=== PATIENT | female | born 1945 | race Caucasian/White ===

== ENCOUNTER 2021-12-11 09:47 | Day surgery (SDC) | payer MEDICARE, BC, SELFPAY ==
[2021-12-11] VITALS (26 sets, daily range): BP systolic 105–160; BP diastolic 50–121; PULSE 1–88; RESP 12–20; TEMP 35.6–36.6; O2SAT 92–98; BMI 33.0
[2021-12-11] MEDS: ACETAMINOPHEN 500 MG TABLET 1000 MG PO ×3 (10:20→21:00)
[2021-12-11] MEDS: CELECOXIB 200 MG CAPSULE PO ×2 (10:20→20:59)
[2021-12-11] MEDS: OXYCODONE (CR) 10 MG TAB.ER.12H PO (10:20)
[2021-12-11] MEDS: LACTATED RINGERS 1000 ML 1,000 ML 100 ML IV (10:21)
[2021-12-11] MEDS: SODIUM CHLORIDE 0.9 % (FLUSH) 10 ML SYRINGE IVF (10:23)
[2021-12-11] MEDS: fentaNYL 100 MCG/2 ML inj IVP (10:41)
[2021-12-11] MEDS: MIDAZOLAM HCL 1 MG/ML inj IVP (10:41)
--- NOTE | 2021-12-11 10:44 | SUR.PREOP ---
TIME?OUT:?1040 PT/brigitte huang RN/Dr. Thomas MDA?VERIFICATION?OF?SURGICAL?SITE right knee,?PROCEDURE,?AND?CONSENT OBTAINED?PRIOR?TO?INVASIVE?PROCEDURE.
[2021-12-11] MEDS: CEFAZOLIN 2 GM INJ IVP (11:30)
--- NOTE | 2021-12-11 12:10 | P.NB_ITS ---
Nerve Block Nerve Block Type of block requested by surgeon for post-operative analgesia: adductor canal Side: right Time out performed: Yes Verification of patient name: Yes Verification of date of : Yes Site marking: site marked Name of person performing procedure: Thomas Assistants, if any: Meghna Continuous monitoring Was continuous monitoring of O2 sat, B/P, cardiac rehabilitation specialist, recorded every 15 minutes?: Yes Procedure Checklist: sterile prep, needles and gloves Ultrasound guided. Images saved: Yes Medications given in 5ml increments after negative aspiration: Ropivicaine %: 0.5 mL: 20 Needle gauge: 22 Decadron (mg): 10 Precedex (mcg): 25 Patient tolerated procedure well: Yes Additional comments: Needle noted adjacent to nerve
--- NOTE | 2021-12-11 12:10 | P.NB_ITS ---
Nerve Block Nerve Block Type of block requested by surgeon for post-operative analgesia: geniculars Side: right Time out performed: Yes Verification of patient name: Yes Verification of date of : Yes Site marking: site marked Name of person performing procedure: Thomas Continuous monitoring Was continuous monitoring of O2 sat, B/P, supervisor type photography, recorded every 15 minutes?: Yes Procedure Checklist: sterile prep, needles and gloves Medications given in 5ml increments after negative aspiration: Ropivicaine %: 0.5 mL: 9 Needle gauge: 25 Patient tolerated procedure well: Yes
--- NOTE | 2021-12-11 13:16 | W.ANESCHARGE ---
Anesthesia Charges Start Date/Time Anesthesia Start Date: 12/11/21 Anesthesia Start Time: 11:14 Stop Date/Time Anesthesia Stop Date: 12/11/21 Anesthesia Stop Time: 13:16 Summary Emergency: No Extremes of Age: Over 72-CPT 30401
--- NOTE | 2021-12-11 13:47 | CRLHL7_ITS ---
For Patients: As a result of the Cures Act, medical imaging exams and procedure reports are released immediately into your electronic medical record. You may view this report before your referring provider. If you have questions, please contact your health care provider. Indication: POST OP RIGHT TKA Technique: Two views right knee Findings/Impression: Hardware from a right total knee arthroplasty is in satisfactory position. Bone alignment is normal. No sign of acute fracture. Postop changes are within normal limits. Dictated by Truman Btuts MD @ 12/12/2021 8:42:25 AM (Electronically Signed)
[2021-12-11] MEDS: LACTATED RINGERS 1000 ML 1,000 ML 75 ML IV (14:20)
--- NOTE | 2021-12-11 14:28 | W.ANESCHARGE ---
Anesthesia Charges Start Date/Time Anesthesia Start Date: 12/11/21 Anesthesia Start Time: 11:14 Stop Date/Time Anesthesia Stop Date: 12/11/21 Anesthesia Stop Time: 13:16 Summary Emergency: No Extremes of Age: Over 72-CPT 85652
--- NOTE | 2021-12-11 15:31 | PM.IMCN1 ---
Date of Consult Consult date: 12/11/21 Requesting Physician: Orthopedics Primary Care Provider: Asha Romo MD Consult Narrative Reason for consult: Medical management of comorbidities Narrative: Sabrina Beard is a 76 year old female who presented to the hospital today for a right TKA. There were no surgical or anesthetic complications noted. Postoperatively, she did have mild hypoxia (oxygen saturation 86-88%), and is tolerating low-dose supplemental oxygen per nasal cannula well. Hospitalist team has been consulted given patient's comorbidities of RLS, essential tremor, GERD, depression, hyperlipidemia, and essential hypertension. PCP is Dr. Romo locally, and no concerns were noted during her preoperative H&P. Sabrina has had previous orthopedic surgeries without complications. She has no history of blood clots. She is not on HRT. She is on no blood thinners regularly. Sabrina is a former smoker, quit 34 years ago. No concerning alcohol use. She is , lives independently locally; her daughter will be coming to stay with her postoperatively. Review of Systems Status of ROS: Reports: 10 or more systems reviewed and unremarkable except as noted in History and below Narrative: Patient has a long history of dyspnea on exertion, followed as an outpatient. She specifically denies breathing concerns or chest pain today. 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) History of arthroplasty of left shoulder (2021) History of bilateral cataract extraction History of cholecystectomy (1998) History of left breast biopsy (1997) History of toe surgery History of total hip replacement (08/11/13) Total knee replacement status Family History (Updated 12/03/21 @ 13:29 by Silvia Bobo RN) Father Colon cancer Mother Myocardial infarction Sister Throat cancer Sister High blood pressure Social History Smoking Status: Former smoker What tobacco products do you use: cigarettes Smoking quit date/years: >15 years ago Do you use any of these nicotine containing products: None How often do you have a drink containing alcohol: 2-4 times a month Alcohol type: hard liquor How many standard drinks containing alcohol do you have on a typical day: 1 or 2 How often do you have six or more drinks on one occasion: Never AUDIT-C Alcohol total score: 2 Non-prescribed substance use: denies use Caffeine: Yes (coffee, 3 cup/morning) Meds Home Medications and Allergies Home Medications Medication Instructions Recorded Confirmed Type acetaminophen 500 mg tablet 1,000 mg PO DAILY PRN 11/22/21 12/10/21 History buspirone 10 mg tablet 10 mg PO BID 11/22/21 12/10/21 History cholecalciferol (vitamin D3) 25 25 mcg PO DAILY tab 11/22/21 12/10/21 History mcg (1,000 unit) tablet duloxetine 30 mg capsule,delayed 30 mg PO DAILY 11/22/21 12/10/21 History release duloxetine 60 mg capsule,delayed 60 mg PO DAILY 11/22/21 12/10/21 History release ferrous fumarate 324 mg (106 mg 324 mg PO QDAY 11/22/21 12/10/21 History iron) tablet fexofenadine 60 mg-pseudoephedrine 1 tab PO DAILY 11/22/21 12/10/21 History ER 120 mg tablet,ext.release,12 hr gabapentin 300 mg capsule 300 mg PO DAILY 11/22/21 12/10/21 History lisinopril 5 mg tablet 5 mg PO DAILY 11/22/21 12/10/21 History metoprolol succinate 50 mg 50 mg PO DAILY 11/22/21 12/10/21 History tablet,extended release 24 hr multivitamin with iron 1 tab PO QDAY 11/22/21 12/10/21 History pramipexole 0.25 mg tablet 0.25 mg PO BID 11/22/21 12/10/21 History rosuvastatin 20 mg tablet 20 mg PO DAILY 11/22/21 12/10/21 History sennosides 8.6 mg-docusate sodium 1 tab-cap PO BID 11/22/21 12/10/21 History 50 mg tablet Home Medication Comments: Patient did not take any of her home meds the morning of surgery. Allergies Allergy/AdvReac Type Severity Reaction Status Date / Time Latex, Natural Rubber Allergy Mild swelling Verified 11/25/21 12:06 meperidine Allergy Mild Unknown Verified 11/25/21 12:06 Opioids-Meperidine and Allergy Unknown Verified 11/22/21 09:42 Related Exam Narrative: Exam Narrative: GEN: Alert and oriented, sitting comfortably in bed and answering questions appropriately HEENT: Normal external ears, EOMIs bilaterally, no scleral icterus CV: RRR, No concerning murmurs, rubs, or gallops R: No concerning rales or rhonchi, no wheezing. Air movement is adequate Ext: wwp, no concerning edema Skin: No concerning skin lesions or rashes on exposed skin Neuro: Nonfocal Psych: Appropriate Const: Vital Signs, click to edit/add: Vital Signs - 24 hr 12/11/21 10:27 12/11/21 10:40 12/11/21 10:45 Temperature 97.8 F Pulse Rate 73 74 68 Pulse Rate [Pulse Oximeter] Respiratory Rate 16 16 16 Blood Pressure 148/89 H 148/99 H 160/92 H Blood Pressure [Le ft Arm] Pulse Oximetry 96 94 98 12/11/21 13:12 12/11/21 13:15 12/11/21 13:20 Temperature 97.6 F Pulse Rate 64 63 64 Pulse Rate [Pulse Oximeter] Respiratory Rate 16 16 16 Blood Pressure 105/50 L 109/64 105/78 Blood Pressure [Le ft Arm] Pulse Oximetry 92 93 93 12/11/21 13:25 12/11/21 13:30 12/11/21 13:35 Temperature Pulse Rate 61 62 60 Pulse Rate [Pulse Oximeter] Respiratory Rate 12 16 14 Blood Pressure 117/74 113/90 H 130/76 Blood Pressure [Le ft Arm] Pulse Oximetry 92 93 94 12/11/21 13:40 12/11/21 13:45 12/11/21 13:50 Temperature Pulse Rate 60 60 59 L Pulse Rate [Pulse Oximeter] Respiratory Rate 18 18 18 Blood Pressure 128/79 128/79 135/121 H Blood Pressure [Le ft Arm] Pulse Oximetry 95 93 94 12/11/21 13:55 12/11/21 14:00 12/11/21 14:11 Temperature 97.4 F L 96.0 F L Pulse Rate 1 L 63 Pulse Rate [Pulse Oximeter] Respiratory Rate 15 18 16 Blood Pressure 135/70 Blood Pressure [Le ft Arm] 133/71 Pulse Oximetry 93 95 12/11/21 14:15 12/11/21 14:30 12/11/21 14:45 Temperature 96.4 F L Pulse Rate Pulse Rate [Pulse Oximeter] 61 64 66 Respiratory Rate 16 16 16 Blood Pressure Blood Pressure [Le ft Arm] 128/69 140/78 H 137/57 L Pulse Oximetry 95 94 96 12/11/21 15:00 Temperature 97.3 F L Pulse Rate Pulse Rate [Pulse Oximeter] 70 Respiratory Rate 18 Blood Pressure Blood Pressure [Le ft Arm] 131/88 Pulse Oximetry 95 Assessment and Plan Assessment and plan (1) Essential hypertension: Problem comment: Dxed 1999, on medication Status: Chronic (2) Gastroesophageal reflux disease: Problem comment: w/ hx PUD Status: Chronic (3) Hyperlipidemia: Problem comment: on rosuvastatin Status: Chronic (4) Restless legs syndrome: Problem comment: Iron started 04/21 (goal to get ferritin >75) Status: Chronic (5) Hypoxia: Status: Acute (6) Total knee replacement status: Status: Acute Plan Supplemental oxygen as needed for mild hypoxia. Patient has no chest pain or tachycardia, exam is reassuring. We will encourage incentive spirometry, obtain imaging if status were to change. Continue home medications and routine outpatient follow-up. Anticipate routine postoperative cares and course.
[2021-12-11] MEDS: CEFAZOLIN 2 GM in 0.9 % SODIUM CHLORIDE Mini-bag 100 ML IVPB (18:35)
[2021-12-11] MEDS: SENNOSIDES 1 TAB TABLET 2 TAB PO (20:59)
[2021-12-11] MEDS: PRAMIPEXOLE 0.25 MG TABLET PO (20:59)
[2021-12-11] MEDS: ASPIRIN 81 MG TABLET EC PO (20:59)
[2021-12-11] MEDS: OXYCODONE 5 MG TABLET PO ×2 (20:59→22:59)
[2021-12-11] MEDS: BUSPIRONE 10 MG TABLET PO (20:59)
[2021-12-11] MEDS: LORazepam 0.5 MG TABLET PO (22:59)
[2021-12-12] MEDS: HYDROmorphone 0.5 mg/0.5 ml inj IVP (00:48)
[2021-12-12] MEDS: CEFAZOLIN 2 GM in 0.9 % SODIUM CHLORIDE Mini-bag 100 ML IVPB ×2 (01:39→10:50)
[2021-12-12] MEDS: OXYCODONE 5 MG TABLET PO ×3 (01:51→08:49)
[2021-12-12] MEDS: LORazepam 0.5 MG TABLET PO (01:51)
[2021-12-12 03:00] VITALS: BP 100/80; PULSE 93; RESP 22; TEMP 36.7; O2SAT 93
[2021-12-12] MEDS: ACETAMINOPHEN 500 MG TABLET 1000 MG PO (05:00)
--- NOTE | 2021-12-12 05:59 | PC.NURSE ---
0900-2260: Patient friendly and cooperative. Rates pain 4-8/10. PRN Oxy and Dilaudid for relief. Dressing to R. knee C/D/I. Denies N/V and tolerating a regular diet. CMS intact. A1, walker, GB. Tolerates well.
[2021-12-12 07:31] LABS: Basophils Percent Auto 0.1 % (0.0-3.0); Hematocrit 35.4 % (33.0-51.0); Hemoglobin* 11.3 gm/dL (12.0-16.0); Immature Granulocytes Abs Auto 0.03 K/uL (0.00-0.30); Lymphocytes Percent Auto 6.8 % (20-44); Mean Corpuscular HGB Conc 32 gm/dL (32-36); Mean Corpuscular Hemoglobin 31 pg (26-34); Mean Corpuscular Volume 98 fL (80-100); Monocytes Percent Auto 9.9 % (0.0-11.0); Platelet Count* 274 K/uL (140-440); RDW Coefficient of Variation % 13.3 % (11.5-15.5); Red Blood Count 3.61 m/uL (4.00-5.20); White Blood Count* 15.68 K/uL (4.50-11.00)
[2021-12-12 07:33] LABS: Slide Review Reflex No
[2021-12-12 07:55] LABS: INR 1.07 (0.91-1.10); Prothrombin Time 14.3 Seconds
[2021-12-12 07:56] LABS: Chloride* 103 mmol/L (96-114); Potassium* 4.3 mmol/L (3.6-5.1); Sodium* 133 mmol/L (135-149)
[2021-12-12 07:59] LABS: Creatinine* 0.8 mg/dL (0.5-1.5); Est. Creatinine Clearance* 39.04; Estimated Glomerular Filt Rate 77.27
[2021-12-12 08:00] LABS: Blood Urea Nitrogen* 24 mg/dL (7-30); Calcium* 8.3 mg/dL (8.4-10.6); Carbon Dioxide* 25 mmol/L (20-32); Glucose* 135 mg/dL (60-115)
[2021-12-12 08:08] VITALS: BP 134/58; PULSE 84; RESP 16; TEMP 36.4; O2SAT 93
[2021-12-12] MEDS: ROSUVASTATIN CALCIUM 10 MG TABLET 20 MG PO (08:47)
[2021-12-12] MEDS: CELECOXIB 200 MG CAPSULE PO (08:47)
[2021-12-12] MEDS: BUSPIRONE 10 MG TABLET PO (08:47)
[2021-12-12] MEDS: DULOXETINE 30 MG CAPSULE DR 90 MG PO (08:48)
[2021-12-12] MEDS: PRAMIPEXOLE 0.25 MG TABLET PO (08:48)
[2021-12-12] MEDS: GABAPENTIN 300 MG CAPSULE PO (08:48)
[2021-12-12] MEDS: METOPROLOL SUCCINATE (XL) 50 MG TAB PO (08:48)
[2021-12-12] MEDS: ASPIRIN 81 MG TABLET EC PO (08:48)
[2021-12-12] MEDS: SENNOSIDES 1 TAB TABLET 2 TAB PO (08:49)
--- NOTE | 2021-12-12 10:22 | PM.ORPRC ---
Procedure Note Date of procedure: 12/11/21 Procedure: PREOPERATIVE DIAGNOSIS: 1. Right knee osteoarthritis, primary, severe POSTOPERATIVE DIAGNOSIS: 1. Right knee osteoarthritis, primary, severe PROCEDURE: 1. Right total knee arthroplasty SURGEON: Rony Barrow MD. STRIKE WARFARE/MISSILE SYSTEMS OFFICER: John Paul ROMAN - Of note, a skilled information services assistant was critical for this case to aid in patient positioning, tissue retraction, limb manipulation/positioning, and closure. ANESTHESIA: Spinal anesthetic IMPLANTS: DePuy J&J all cemented TKA - Attune PS femur size 6 narrow size for tibia, 6 mm poly spacer, 35 mm patella TOURNIQUET: 90 min at 300 torr EBL: 50 ml COMPLICATIONS: None evident INDICATIONS: The patient is a pleasant 76-year-old female who has experienced severe right knee pain and difficulty bearing weight. Workup included x-rays which revealed severe osteoarthrosis in the knee. Given the deformity, the dysfunction, and the pain, as well as the failure of nonoperative management, recommendation was made for surgery. FINDINGS: Moderate effusion upon entering the joint. Full-thickness chondral loss broadly through medial femoral condyle and patellofemoral compartment. Also significant lateral compartment chondromalacia. Degenerative meniscal pathology DESCRIPTION OF PROCEDURE: Following a thorough discussion of risks, benefits, and alternatives consent was obtained and the right knee was marked. The patient was brought to the operating room and placed supine on the operating table. Induction of anesthesia was undertaken. 2 g IV Ancef and 1 g tranexamic acid was administered within 1 hr of incision preoperatively. Proper time-out was performed identifying proper patient, site, procedure. The operative extremity was prepped and draped in the appropriate sterile fashion using ChloraPrep after the patient was positioned supine with all bony prominences well padded. A longitudinal, anterior, midline skin incision was made starting approximately 3cm proximal to the superior pole of the patella and advanced distal to the tibial tubercle. A median parapatellar arthrotomy was created. A medial subperiosteal sleeve was created with knife, crawley elevator and curved osteotome. The retropatellar fatpad was resected and the synovium in the suprapatellar pouch excised to visualize the anterior femoral cortex. Femoral preparation was performed via an intramedullary guide. Step drill allowed access into the femoral canal. The distal cutting guide was placed with 5? of valgus and 10 mm cut on the distal femur. Femur was sized using a posterior referencing guide in 3? of external rotation. This found have a best fit with the sizing noted above. The 4 in 1 cutting block was then placed, and the distal femur shaped accordingly. The box cut was then created and the trial implant inserted to confirm appropriate fit. We turned our attention to the proximal tibia. Extramedullary guide was utilized for cutting with the goal of being 90 degree cut from the mechanical axis of the tibia in the varus/valgus plane utilizing tibial crest as the primary alignment. Initially a 2 mm resection was performed from the medial tibial plateau. Ultimately, balancing was achieved in both flexion and extension in both varus and valgus. The knee was able to achieve full extension as well comfortably. The patella was initially measured and found have a thickness of 22 mm. It was resected back to approximately 14 mm. It was sized to be a best fit with as noted above. This was drilled, trial placed. All trials were placed and found to have an excellent stability and balance. At this stage, trial implants were removed, the knee was thoroughly irrigated with normal saline, and the cement was mixed. After irrigation, the knee was thoroughly dried, and cement placed, with the real tibial and femoral implants placed along with the patella. Trial poly spacer was placed and confirmed to have excellent range of motion and full extension, and the real poly spacer opened and inserted. All extra cement was removed, and a 3 min Betadine soak performed. Finally, a final irrigation round with normal saline was performed. Closure performed with 0 Vicryl and #0 Stratafix for the quad tendon/retinaculum. 2-0 Vicryl for the subcutaneous and 4-0 Stratafix for subcuticular closure. Dressings were applied and the patient was awoken from anesthesia after the tourniquet deflated and transferred the PACU in stable condition. A skilled information services assistant was critical for this case to aid in patient positioning, tissue retraction, bone exposure, limb manipulation/positioning, patient safety, and closure. PLAN: 1. Weight bear as tolerated operative extremity. 2. 23 hr perioperative antibiotics. 3. Ice. 4. PT/OT consults for ambulation assistance/mobility education. 5. Social work consult for discharge planning. 6. DVT prophylaxis with at SCDs, Masoud Hose, and aspirin twice daily.
--- NOTE | 2021-12-12 10:32 | PM.DS1 ---
DS: Providers Provider Primary care physician: Asha Romo MD Consults: 12/11/21 14:03 Consult to Occupational Therapy [CONS] Routine Comment: See nursing Activity Order Reason(s) for OT Consult:: Evaluate and Treat Any Restrictions?:: No Restrictions Consult to Physical Therapy [CONS] Routine Comment: Ambulate in the [place]rie today. Reason(s) for PT Consult:: Evaluate and Treat Any Restrictions?:: No Restrictions Consult to Physician [CONS] Routine Comment: Consulting Provider: Hospitalists Has provider been notified: No Consult to Lighting Technician [CONS] Routine Comment: Reason for Consult:: Discharge Planning Needs Attending Physician on discharge: Rony Barrow MD DS: Summary Hospital Course Hospital Course: Patient admitted to the hospital on 12/11/2021 for right TKA with orthopedic surgery. Hospitalist team was consulted given patient's comorbidities as noted in H&P. Sabrina did well postoperatively and comorbidities remained stable. She was found to have a systolic murmur on postoperative day 1, will follow-up with PCP for this. She is asymptomatic. No changes made to home medications upon discharge. Prophylaxis and pain management per Orthopedic surgery team. Patient will be discharged home with routine follow-up with therapies, orthopedic surgery, and PCP. Time Spent with Patient Time attestation: Total time spent providing and/or coordinating discharge services: Time spent: Less than 30 minutes Specific discharge activities: Follow-up with PCP Exam Narrative: Exam Narrative: GEN: Alert HEENT: Normal external ears, EOMIs bilaterally, no scleral icterus CV: RRR, systolic murmur without concerning features or radiation noted, no rubs or gallops R: LCTA bilaterally without concerning wheezing, rales, or rhonchi Ext: wwp, no concerning edema Skin: No concerning skin lesions or rashes on exposed skin Neuro: Nonfocal Psych: Appropriate Const: Vital Signs, click to edit/add: Vital Signs - 24 hr 12/11/21 10:40 12/11/21 10:45 12/11/21 13:12 Temperature 97.6 F Pulse Rate 74 68 64 Pulse Rate [Pulse Oximeter] Respiratory Rate 16 16 16 Blood Pressure 148/99 H 160/92 H 105/50 L Blood Pressure [Le ft Arm] Pulse Oximetry 94 98 92 12/11/21 13:15 12/11/21 13:20 12/11/21 13:25 Temperature Pulse Rate 63 64 61 Pulse Rate [Pulse Oximeter] Respiratory Rate 16 16 12 Blood Pressure 109/64 105/78 117/74 Blood Pressure [Le ft Arm] Pulse Oximetry 93 93 92 12/11/21 13:30 12/11/21 13:35 12/11/21 13:40 Temperature Pulse Rate 62 60 60 Pulse Rate [Pulse Oximeter] Respiratory Rate 16 14 18 Blood Pressure 113/90 H 130/76 128/79 Blood Pressure [Le ft Arm] Pulse Oximetry 93 94 95 12/11/21 13:45 12/11/21 13:50 12/11/21 13:55 Temperature Pulse Rate 60 59 L 1 L Pulse Rate [Pulse Oximeter] Respiratory Rate 18 18 15 Blood Pressure 128/79 135/121 H 135/70 Blood Pressure [Le ft Arm] Pulse Oximetry 93 94 93 12/11/21 14:00 12/11/21 14:11 12/11/21 14:15 Temperature 97.4 F L 96.0 F L Pulse Rate 63 Pulse Rate [Pulse Oximeter] 61 Respiratory Rate 18 16 16 Blood Pressure Blood Pressure [Le ft Arm] 133/71 128/69 Pulse Oximetry 95 95 12/11/21 14:30 12/11/21 14:45 12/11/21 15:00 Temperature 96.4 F L 97.3 F L Pulse Rate Pulse Rate [Pulse Oximeter] 64 66 70 Respiratory Rate 16 16 18 Blood Pressure Blood Pressure [Le ft Arm] 140/78 H 137/57 L 131/88 Pulse Oximetry 94 96 95 12/11/21 15:30 12/11/21 16:00 12/11/21 17:00 Temperature 97.4 F L 97.1 F L Pulse Rate Pulse Rate [Pulse Oximeter] 71 76 75 Respiratory Rate 16 16 18 Blood Pressure Blood Pressure [Le ft Arm] 109/67 128/81 126/89 Pulse Oximetry 94 93 94 12/11/21 18:00 12/11/21 19:00 12/11/21 20:00 Temperature 96.9 F L 96.9 F L Pulse Rate Pulse Rate [Pulse Oximeter] 79 86 88 Respiratory Rate 18 20 20 Blood Pressure Blood Pressure [Le ft Arm] 136/78 131/79 133/67 Pulse Oximetry 92 92 94 12/11/21 23:00 12/12/21 03:00 12/12/21 08:08 Temperature 97.1 F L 98.0 F 97.6 F Pulse Rate Pulse Rate [Pulse Oximeter] 85 93 84 Respiratory Rate 18 22 16 Blood Pressure Blood Pressure [Le ft Arm] 139/93 H 100/80 134/58 L Pulse Oximetry 95 93 93 DS: Data Data Completed and Pending Labs on day of discharge: Labs from last 24 hours 12/12/21 12/12/21 12/12/21 06:44 06:44 06:44 WBC 15.68 H RBC 3.61 L Hgb 11.3 L Hct 35.4 MCV 98 MCH 31 MCHC 32 RDW Coeff of Leif 13.3 Plt Count 274 Neut % (Auto) 83.0 H Lymph % (Auto) 6.8 L Patrick % (Auto) 9.9 Eos % (Auto) 0.0 Baso % (Auto) 0.1 Neut # (Auto) 13.00 H Lymph # (Auto) 1.10 Patrick # (Auto) 1.60 H Eos # (Auto) 0.00 Baso # (Auto) 0.00 Abs Immat Gran (auto) 0.03 INR 1.07 Sodium 133 L Potassium 4.3 Chloride 103 Carbon Dioxide 25 BUN 24 Creatinine 0.8 Estimated Creat Clear 39.04 Glucose 135 H Calcium 8.3 L Discharge Plan Discharge Disposition: Home, Self-Care Discharging Surgeon: Mika Borjas Follow-Up Appointment: as scheduled with Ortho/PT Prescriptions: New oxycodone 5 mg tablet 2.5 - 5 mg PO Q4-6H MDD 6 PRN (Reason: pain) Qty: 42 0RF Rx Instructions: Take as needed for pain: 2.5mg mild pain, 5mg moderate-severe pain. Wean as tolerated. aspirin 81 mg tablet,delayed release (DR/EC) 81 mg PO BID Qty: 60 0RF celecoxib 200 mg capsule 200 mg PO BID Qty: 60 0RF Continued cholecalciferol (vitamin D3) 25 mcg (1,000 unit) tablet 25 mcg PO DAILY 0RF duloxetine 60 mg capsule,delayed release(DR/EC) 60 mg PO DAILY 0RF Rx Instructions: TAKES WITH 30 MG CAPSULE FOR TOTAL DAILY DOSE OF 90 MG. fexofenadine-pseudoephedrine 60-120 mg tablet extended release 12 hr 1 tab PO DAILY 0RF multivitamin with iron Tablet 1 tab PO QDAY 0RF ferrous fumarate 324 mg (106 mg iron) tablet 324 mg PO QDAY 0RF pramipexole 0.25 mg tablet 0.25 mg PO BID 0RF buspirone 10 mg tablet 10 mg PO BID 0RF duloxetine 30 mg capsule,delayed release(DR/EC) 30 mg PO DAILY 0RF Rx Instructions: take with duloxetine 60mg for a total of 90mg daily gabapentin 300 mg capsule 300 mg PO DAILY 0RF rosuvastatin 20 mg tablet 20 mg PO DAILY 0RF lisinopril 5 mg tablet 5 mg PO DAILY 0RF metoprolol succinate 50 mg tablet extended release 24 hr 50 mg PO DAILY 0RF Changed sennosides-docusate sodium 8.6-50 mg tablet 1 - 2 tab-cap PO BID PRN (Reason: constipation) Qty: 60 0RF Rx Instructions: Hold medication if experiencing loose stools. acetaminophen 500 mg tablet 500 - 1,000 mg PO Q6H MDD 4000mg PRNQty: 100 0RF Rx Instructions: NO MORE THAN 4000 MG/DAY Activity Level: Activity as Tolerated, Weight Bearing as Tolerated, Use Cane and Use Walker Activity Detail: Wound: ?Do not remove original dressing; we will remove this at first postop visit in 1 week. Only remove dressing if integrity is in question. ?No immersing wound in water; showering okay; light scrub with your hand and body soap, rinse, dab dry ?Sutures are under the skin, will dissolve; allow surgical glue to come off naturally; do not scrub the wound or apply ointments/lotions ?Call our office with any redness that streaks, excessive drainage from the wound, or wound gapping. Ice/Elevate: ?Ice as needed for swelling and discomfort (cryocuff or ice pack); elevate frequently above the heart ALEXIS socks: ?Wear for 1 month, remove for 1 hour 3 times per day ?These are frustrating to take on/off, but are important for blood clot prevention for 1 month after surgery Blood Clot Prevention (DVT): ?Medication: 81 mg aspirin by mouth twice daily Driving: ?Do not drive while taking narcotic pain medication ?Anticipate 4-6 weeks no driving if operative leg is driving leg Dental: ?No elective dental work for 6 months post-op. If there is an urgent/emergent dental need, contact our office for an antibiotic prescription. Smoking/Alcohol: ?Do not smoke; do no drink alcohol especially when taking postoperative oral narcotic medication Seek Care from you Primary Care Provider if you experience the following issues in the postoperative phase and beyond: ?Bacterial infections such as: pneumonia, bacterial skin infection (cellulitis), UTI, high fever, chills unrelated to the operative body part - call your primary care physician urgently for treatment in hopes to protect your health and the metal implant. Referrals: ?PT, OT per patient preference - evaluate treat total right knee arthroplasty protocol (the training, ROM, ADLs, knee-high Alexis socks) Follow up: ?Ortho surgeon follow-up in 6 weeks; repeat radiographs right knee ?PA-C visit in 1 week *If there are any acute concerns regarding your surgery, please call our orthopedic clinic ([phone]) Discharge Diet: Regular Patient Instructions: Surgical Site Infections (DC) Additional Instructions: See Dr. Romo in 3-4 weeks for recheck of murmur Forms: Work/Release Restrictions Follow-up: [facility], Physical Therapy [Other] - 12/17/21 1:00 pm Asha Romo MD [Primary Care Provider] - Mika Borjas PA-C [Physician Business Development Specialist] - 12/19/21 9:30 am Discharge Orders: Discharge Order (Routine); Ordered 12/12/21 Ordered By: Charmaine Morales
--- NOTE | 2021-12-12 16:48 | PM.ORPN ---
Subjective Subjective Date Seen: 12/12/21 Principal diagnosis: Status postop day 1 right total knee arthroplasty Interval history: Patient reports doing well. No acute events over night. Noted some hypoxia nearly postoperative which was remedied with nasal cannula oxygen. Pain managed with scheduled /PRN medications and ice. DVT prophylaxis 81 mg aspirin by mouth twice daily, bilateral knee high Masoud stockings, and SCDs.. fevers, chills, aches, N/V, CP, tachycardia, or lightheadedness. She states that she is chronically short of breath from a history of smoking which she quit 40 years ago. Ortho Exam Narrative Exam Narrative: -Patient appears comfortable in recliner; no apparent acute distress -Alert and oriented times 3 -Operative knee swollen; soft tissues supple; no obvious erythema. Ecchymosis minimal. Warmth appropriate -Surgical dressing clean, dry, intact; no obvious drainage, no erythematous streaking peripheral to the bandage -bilateral calves soft nontender; no significant swelling, edema, tenderness, erythema, discoloration, warmth, or palpable cords -2+ DP/PT pulses, intact dermatomes and myotomes distally (5/5 strength) Const Vital Signs, click to edit/add: Vital Signs - 24 hr 12/11/21 17:00 12/11/21 18:00 12/11/21 19:00 Temperature 97.1 F L 96.9 F L Pulse Rate [Pulse Oximeter] 75 79 86 Respiratory Rate 18 18 20 Blood Pressure [Left Arm] 126/89 136/78 131/79 Pulse Oximetry 94 92 92 12/11/21 20:00 12/11/21 23:00 12/12/21 03:00 Temperature 96.9 F L 97.1 F L 98.0 F Pulse Rate [Pulse Oximeter] 88 85 93 Respiratory Rate 20 18 22 Blood Pressure [Left Arm] 133/67 139/93 H 100/80 Pulse Oximetry 94 95 93 12/12/21 08:08 Temperature 97.6 F Pulse Rate [Pulse Oximeter] 84 Respiratory Rate 16 Blood Pressure [Left Arm] 134/58 L Pulse Oximetry 93 Assessment and Plan Assessment and plan (1) Essential hypertension: Problem details: Dxed 1999, on medication Status: Chronic (2) Gastroesophageal reflux disease: Problem details: w/ hx PUD Status: Chronic (3) Hyperlipidemia: Problem details: on rosuvastatin Status: Chronic (4) Restless legs syndrome: Problem details: Iron started 04/21 (goal to get ferritin >75) Status: Chronic (5) Hypoxia: Status: Acute (6) Total knee replacement status: Problem details: 1. POD 1 right Total Knee Arthroplasty 2. Acute blood loss anemia, surgically related (hgb 11.3 - asymptomatic) Status: Acute Plan - Complete 23 hour perioperative antibiotics. - PT/OT consult for education and assistance. - Social work consult for discharge planning - Prescribed analgesics as needed - DVT prophylaxis: 81 mg aspirin by mouth twice daily, bilateral knee high Masoud Hose stockings and SCDs - Anticipation is for discharge to home with daughter 12/12/2021 if the patient remains medically stable, pain is controlled, and they are safe with mobilization.
--- NOTE | 2021-12-12 16:51 | PM.DS1 ---
DS: Providers Provider Date Seen: 12/12/21 Date of admission: Med surg recovery 12/11/2021 Primary care physician: Asha Romo MD Consults: 12/11/21 14:03 Consult to Occupational Therapy [CONS] Routine Comment: See nursing Activity Order Reason(s) for OT Consult:: Evaluate and Treat Any Restrictions?:: No Restrictions Consult to Physical Therapy [CONS] Routine Comment: Ambulate in the [place] today. Reason(s) for PT Consult:: Evaluate and Treat Any Restrictions?:: No Restrictions Consult to Physician [CONS] Routine Comment: Consulting Provider: Hospitalists Has provider been notified: No Consult to Ballistic Expert [CONS] Routine Comment: Reason for Consult:: Discharge Planning Needs Attending Physician on discharge: Rony Barrow MD Date of Discharge: 12/12/21 DS: Diagnosis Discharge Diagnosis (1) Essential hypertension: Status: Chronic Problem details: Dxed 1999, on medication (2) Gastroesophageal reflux disease: Status: Chronic Problem details: w/ hx PUD (3) Hyperlipidemia: Status: Chronic Problem details: on rosuvastatin (4) Restless legs syndrome: Status: Chronic Problem details: Iron started 04/21 (goal to get ferritin >75) (5) Hypoxia: Status: Acute (6) Total knee replacement status: Status: Acute Problem details: 1. POD 1 right Total Knee Arthroplasty 2. Acute blood loss anemia, surgically related (hgb 11.3 - asymptomatic) DS: Summary Hospital Course Hospital Course: Patient admitted to the hospital on 12/11/2021 for right TKA with orthopedic surgery. Hospitalist team was consulted given patient's comorbidities as noted in H&P. Sabrina did well postoperatively and comorbidities remained stable. She was found to have a systolic murmur on postoperative day 1, will follow-up with PCP for this. She is asymptomatic. No changes made to home medications upon discharge. Prophylaxis and pain management per Orthopedic surgery team. Patient will be discharged home with routine follow-up with therapies, orthopedic surgery, and PCP. The patient has a history of right knee osteoarthritis, primary, severe. After appropriate preoperative evaluation, the patient underwent right total knee arthroplasty. Postoperatively given anticoagulation for deep vein thrombosis prophylaxis. They progressed to PT/OT and were felt ready and prepared for discharged to home with appropriate pain medication and anticoagulation medications. Status at Discharge Functional status at discharge: uses cane/walker Overall status at discharge: patient is progressing back to baseline Time Spent with Patient Time attestation: Total time spent providing and/or coordinating discharge services: Time spent: Less than 30 minutes Exam Const: Vital Signs, click to edit/add: Vital Signs - 24 hr 12/11/21 17:00 12/11/21 18:00 12/11/21 19:00 Temperature 97.1 F L 96.9 F L Pulse Rate [Pulse Oximeter] 75 79 86 Respiratory Rate 18 18 20 Blood Pressure [Le ft Arm] 126/89 136/78 131/79 Pulse Oximetry 94 92 92 12/11/21 20:00 12/11/21 23:00 12/12/21 03:00 Temperature 96.9 F L 97.1 F L 98.0 F Pulse Rate [Pulse Oximeter] 88 85 93 Respiratory Rate 20 18 22 Blood Pressure [Le ft Arm] 133/67 139/93 H 100/80 Pulse Oximetry 94 95 93 12/12/21 08:08 Temperature 97.6 F Pulse Rate [Pulse Oximeter] 84 Respiratory Rate 16 Blood Pressure [Le ft Arm] 134/58 L Pulse Oximetry 93 DS: Data Data Completed and Pending Labs on day of discharge: Labs from last 24 hours 12/12/21 12/12/21 12/12/21 06:44 06:44 06:44 WBC 15.68 H RBC 3.61 L Hgb 11.3 L Hct 35.4 MCV 98 MCH 31 MCHC 32 RDW Coeff of Leif 13.3 Plt Count 274 Neut % (Auto) 83.0 H Lymph % (Auto) 6.8 L Sullivan % (Auto) 9.9 Eos % (Auto) 0.0 Baso % (Auto) 0.1 Neut # (Auto) 13.00 H Lymph # (Auto) 1.10 Sullivan # (Auto) 1.60 H Eos # (Auto) 0.00 Baso # (Auto) 0.00 Abs Immat Gran (auto) 0.03 INR 1.07 Sodium 133 L Potassium 4.3 Chloride 103 Carbon Dioxide 25 BUN 24 Creatinine 0.8 Estimated Creat Clear 39.04 Glucose 135 H Calcium 8.3 L Discharge Plan Discharge Disposition: Home, Self-Care Discharging Surgeon: Mika Borjas Follow-Up Appointment: as scheduled with Ortho/PT Prescriptions: New oxycodone 5 mg tablet 2.5 - 5 mg PO Q4-6H MDD 6 PRN (Reason: pain) Qty: 42 0RF Rx Instructions: Take as needed for pain: 2.5mg mild pain, 5mg moderate-severe pain. Wean as tolerated. aspirin 81 mg tablet,delayed release (DR/EC) 81 mg PO BID Qty: 60 0RF celecoxib 200 mg capsule 200 mg PO BID Qty: 60 0RF Continued cholecalciferol (vitamin D3) 25 mcg (1,000 unit) tablet 25 mcg PO DAILY 0RF duloxetine 60 mg capsule,delayed release(DR/EC) 60 mg PO DAILY 0RF Rx Instructions: TAKES WITH 30 MG CAPSULE FOR TOTAL DAILY DOSE OF 90 MG. fexofenadine-pseudoephedrine 60-120 mg tablet extended release 12 hr 1 tab PO DAILY 0RF multivitamin with iron Tablet 1 tab PO QDAY 0RF ferrous fumarate 324 mg (106 mg iron) tablet 324 mg PO QDAY 0RF pramipexole 0.25 mg tablet 0.25 mg PO BID 0RF buspirone 10 mg tablet 10 mg PO BID 0RF duloxetine 30 mg capsule,delayed release(DR/EC) 30 mg PO DAILY 0RF Rx Instructions: take with duloxetine 60mg for a total of 90mg daily gabapentin 300 mg capsule 300 mg PO DAILY 0RF rosuvastatin 20 mg tablet 20 mg PO DAILY 0RF lisinopril 5 mg tablet 5 mg PO DAILY 0RF metoprolol succinate 50 mg tablet extended release 24 hr 50 mg PO DAILY 0RF Changed sennosides-docusate sodium 8.6-50 mg tablet 1 - 2 tab-cap PO BID PRN (Reason: constipation) Qty: 60 0RF Rx Instructions: Hold medication if experiencing loose stools. acetaminophen 500 mg tablet 500 - 1,000 mg PO Q6H MDD 4000mg PRNQty: 100 0RF Rx Instructions: NO MORE THAN 4000 MG/DAY Activity Level: Activity as Tolerated, Weight Bearing as Tolerated, Use Cane and Use Walker Activity Detail: Wound: ?Do not remove original dressing; we will remove this at first postop visit in 1 week. Only remove dressing if integrity is in question. ?No immersing wound in water; showering okay; light scrub with your hand and body soap, rinse, dab dry ?Sutures are under the skin, will dissolve; allow surgical glue to come off naturally; do not scrub the wound or apply ointments/lotions ?Call our office with any redness that streaks, excessive drainage from the wound, or wound gapping. Ice/Elevate: ?Ice as needed for swelling and discomfort (cryocuff or ice pack); elevate frequently above the heart ALEXIS socks: ?Wear for 1 month, remove for 1 hour 3 times per day ?These are frustrating to take on/off, but are important for blood clot prevention for 1 month after surgery Blood Clot Prevention (DVT): ?Medication: 81 mg aspirin by mouth twice daily Driving: ?Do not drive while taking narcotic pain medication ?Anticipate 4-6 weeks no driving if operative leg is driving leg Dental: ?No elective dental work for 6 months post-op. If there is an urgent/emergent dental need, contact our office for an antibiotic prescription. Smoking/Alcohol: ?Do not smoke; do no drink alcohol especially when taking postoperative oral narcotic medication Seek Care from you Primary Care Provider if you experience the following issues in the postoperative phase and beyond: ?Bacterial infections such as: pneumonia, bacterial skin infection (cellulitis), UTI, high fever, chills unrelated to the operative body part - call your primary care physician urgently for treatment in hopes to protect your health and the metal implant. Referrals: ?PT, OT per patient preference - evaluate treat total right knee arthroplasty protocol (the training, ROM, ADLs, knee-high Alexis socks) Follow up: ?Ortho surgeon follow-up in 6 weeks; repeat radiographs right knee ?PA-C visit in 1 week *If there are any acute concerns regarding your surgery, please call our orthopedic clinic ([phone]) Discharge Diet: Regular Patient Instructions: Aspirin (By mouth), Oxycodone, Rapid Release (By mouth), Celecoxib (By mouth), Knee Replacement (DC) Additional Instructions: See Dr. Romo in 3-4 weeks for recheck of murmur Forms: Work/Release Restrictions Follow-up: [facility], Physical Therapy [Other] - 12/17/21 1:00 pm Asha Romo MD [Primary Care Provider] - 12/26/21 9:00 am Mika Borjas PA-C [Physician Safety Glass Installer] - 12/19/21 9:30 am Discharge Orders: Discharge Order (Routine); Ordered 12/12/21 Ordered By: Charmaine Morales
== END 2021-12-12 12:06 | disposition home or self-care (01) ==
LOC: OR 09:48 → MEDSURG 09:56
PROVIDERS: PCP Internal Medicine; Visit Provider Orthopaedic Surgery Sports Medicine
PROC: (CPT 27447; principal; 2021-12-11 12:00)
DX: M17.11 Unilateral primary osteoarthritis, right knee (principal); R09.02 Hypoxemia; R01.1 Cardiac murmur, unspecified; K21.9 Gastro-esophageal reflux disease without esophagitis; I10 Essential (primary) hypertension; G25.0 Essential tremor; G25.81 Restless legs syndrome; F32.A Depression, unspecified; E78.5 Hyperlipidemia, unspecified; Z96.619 Presence of unspecified artificial shoulder joint; Z96.649 Presence of unspecified artificial hip joint
CPT/HCPCS: 27447; 1402; 36415; 64447; 64454; 73560; 76942; 80048; 85025; 85610; 97110; 97116; 97161; 97165; 97535; 99100; A9270; C1776; J0690; J1100; J1170; J2250; J2405; J2704; J2795; J3010; J7120

== ENCOUNTER 2021-12-23 13:04 | Outpatient (CLI) | payer MEDICARE, BC, SELFPAY ==
--- NOTE | 2021-12-23 15:00 | US_ITS ---
Final Report Patient: PEG DOWNS Facility:?[facility] Patient ID:?[id number] Site Patient ID:?[id number]. Site :?[id number] Study:?US Extremity Right LEV RT-12/23/2021 3:39:53 PM Ordering Physician:?Clarissa Barry Final Report: INDICATION: Recent knee surgery, swelling, and pain. TECHNIQUE: Ultrasound venous duplex lower right extremity. Compression venous exam was performed using rain-scale, color Doppler, and spectral Doppler analysis. COMPARISON: None. FINDINGS: Deep veins: Sonographic imaging demonstrates the right common femoral, deep femoral, superficial femoral, popliteal, posterior tibial and the contralateral left common femoral veins to be fully compressible with normal color Doppler blood flow. Superficial veins: Greater saphenous vein is fully compressible. No popliteal cyst. IMPRESSION: Normal right lower extremity venous ultrasound, no sign of deep venous thrombosis. Dictated by Zeb Aguero MD @ 12/23/2021 5:47:27 PM (Electronic Signature)
== END 2021-12-23 13:05 | disposition home or self-care (01) ==
PROVIDERS: PCP Internal Medicine; Visit Provider Internal Medicine
DX: M79.89 Other specified soft tissue disorders (principal); M25.561 Pain in right knee; R22.41 Localized swelling, mass and lump, right lower limb; Z96.651 Presence of right artificial knee joint
CPT/HCPCS: 93971

== ENCOUNTER 2021-12-26 09:37 | Outpatient (CLI) | payer MEDICARE, BC, SELFPAY ==
[2021-12-26 13:42] LABS: Ferritin* 86.5 ng/mL (11.1-264.0)
== END 2021-12-26 09:38 | disposition home or self-care (01) ==
LOC: NFLDREF 09:37
PROVIDERS: PCP Internal Medicine; Visit Provider Internal Medicine
DX: Z00.01 Encounter for general adult medical examination with abnormal findings (principal); I10 Essential (primary) hypertension; R01.1 Cardiac murmur, unspecified; D12.6 Benign neoplasm of colon, unspecified; G25.81 Restless legs syndrome; F41.9 Anxiety disorder, unspecified; G25.0 Essential tremor; E78.5 Hyperlipidemia, unspecified; B02.29 Other postherpetic nervous system involvement; K21.9 Gastro-esophageal reflux disease without esophagitis; M54.41 Lumbago with sciatica, right side; G89.29 Other chronic pain
CPT/HCPCS: 82728

== ENCOUNTER 2021-12-31 14:09 | Outpatient (CLI) | payer MEDICARE, BC, SELFPAY ==
--- NOTE | 2021-12-31 15:00 | CRLHL7_ITS ---
For Patients: As a result of the Century Cures Act, medical imaging exams and procedure reports are released immediately into your electronic medical record. You may view this report before your referring provider. If you have questions, please contact your health care provider. INDICATION: shortness of breath since last or Thursday TECHNIQUE: CT chest PE was acquired with 95 cc Omnipaque 370 IV contrast. COMPARISON: None. FINDINGS: Heart and vasculature: Contrast opacification of the pulmonary arterial tree is adequate. No sign of pulmonary embolism. Heart size is normal. Question left ventricular wall thickening more pronounced at septum which may be due to degree of contraction/artifact. Recommend correlation with echocardiogram if there is clinical concern. Thoracic aorta and pulmonary artery are normal in caliber.Thoracic aorta and coronary artery calcifications. Lungs and pleural: No focal consolidation. Solid right lower lobe pulmonary nodule measuring 3 millimeters. No pleural effusions, pleural thickening, or pneumothorax. Lymph nodes/mediastinum: No mediastinal, hilar, or axillary adenopathy. Chest wall: No masses. Upper abdomen: No acute or significant findings. Moderate size hiatal hernia. 2.4 cm right renal cyst. Bones: Degenerative changes of the spine most notably at the thoracolumbar junction. Left shoulder arthroplasty. IMPRESSION: 1. No acute cardiopulmonary process. No evidence of pulmonary embolus. 2. Question left ventricular wall thickening more pronounced at septum which may be due to degree of contraction/artifact. Recommend correlation with echocardiogram if there is clinical concern. 3. Moderate size hiatal hernia. 4. Solid right lower lobe pulmonary nodule, measuring 3 millimeters. Follow-up per Fleischner society guidelines. Please note that all CT scans at this facility use dose modulation, iterative reconstruction, and/or weight-based dosing when appropriate to reduce radiation dose to as low as reasonably achievable. Dictated by Alireza Santillan MD @ 12/31/2021 4:28:36 PM (Electronically Signed)
== END 2021-12-31 14:10 | disposition home or self-care (01) ==
PROVIDERS: PCP Internal Medicine; Visit Provider Family Medicine
DX: R06.02 Shortness of breath (principal); Z98.890 Other specified postprocedural states; K44.9 Diaphragmatic hernia without obstruction or gangrene; R91.1 Solitary pulmonary nodule
CPT/HCPCS: 71260; 80048; 83880; 86140; Q9967

== ENCOUNTER 2022-01-10 10:35 | Outpatient (CLI) | payer MEDICARE, BC, SELFPAY | END 2022-01-10 10:36 | disposition home or self-care (01) | PROVIDERS: PCP Internal Medicine; Visit Provider Internal Medicine | DX: R01.1 Cardiac murmur, unspecified (principal); I34.0 Nonrheumatic mitral (valve) insufficiency | CPT/HCPCS: 93306 ==

== ENCOUNTER 2022-01-23 13:45 | Outpatient (RCR) | payer MEDICARE, BC, SELFPAY ==
--- NOTE | 2021-12-17 14:28 | PT.OPEX ---
PT [facility] Out[facility] Eval PT [facility] Outpatient Eval Start: 12/17/21 13:07 Freq: Status: Active Protocol: Document 12/17/21 14:08 NMK (Rec: 12/17/21 14:25 NMK [id number]) E-Signed By Linus Jim DPT Physical Therapy Outpatient Evaluation Insurance Information Recert Due Date 03/19/22 Insurance Name Medicare B,[employer] Medical Diagnosis S/p right TKA; DOS 12/11/2021 Treating Diagnosis Decreased R knee ROM; R knee pain; R knee weakness; R knee effusion Referring Rony Singh MD Subjective Subjective 76 y.o. female pt presents s/p R total knee arthroplasty with DOS 12/11/2021. She currently presents ambulating with a FWW. She denies fevers, chills, or other signs of infection. Overall she reports she is doing very well to date. She states her pain is well under control at this time. She states that she is not having minimal pain with transfers, bed mobility, or gait at this time. She is only taking NSAID's at this time to manage pain. No longer taking oxycodone for pain. She has been showering and bathing well. She did report she accidentally removed her bandage, but has not had any issues with the incision site and it appears well healing. Overall, no issues in her recovery at this time. She does has bruising which she is concerned about but it is mostly pain free. PMH: Depression, HTN, Cancer, Hip GOSIA, Shoulder GOSIA, Arthritis, Latex allergy Date of Surgery (If applicable) 12/11/21 Current Work Status Retired Precautions Weight Bearing Status Weight Bear as Tolerated Therapy Limitations/Systems Review Not Limited Objective Other/Pertinent Objective Knee AROM in supine: 5-114 Knee circumferential measurement: 46.5 cm Assessment Assessment/Impression Pt presents s/p right total knee arthroplasty with DOS . Current impairments related to this health condition included decreased knee ROM, knee pain, knee swelling/effusion, as well as decreased balance and knee weakness. These impairments contribute to decreased capacity to perform functional transfers, ambulate, and negotiate stairs to her full capacity. She is far from her PLOF at this time and will greatly benefit from skilled PT services in order to restore her PLOF and optimize her recovery after surgery. Primary Functional Limitations Walking, stairs, transfers Plan of Care Rehabilitation Potential Fair Physical Therapy Goals Prior to 03/19/2022... Short term goals to be completed 4-6 weeks: 1. Pt will walk for 10 minutes during a therapy session without any rest breaks to show improvements in functional endurance for daily activities at home 2. Pt will demonstrate 0 degrees of knee extension to restore baseline knee mobility for daily tasks Long-term goals to be completed in 16 weeks: 1. Pt will demonstrate 5/5 quad strength in their involved LE with MMT to show improvements in quad strength for functional tasks 2. Pt will be independent in HEP in order to show ability to self manage condition after discharge 3. Pt will be able independently negotiate 10 stairs in therapy with step over gait pattern to show ability to navigate stairs at home and in community 4. Pt will demonstrate at least 120 degrees knee flexion to show functional mobility for sit<>stands and other ADL' s Coordination/Communication With Referral Source Treatment Plan/Direct Interventions Gait Training,Neuromuscular Re -ed,Self-Care/Home Management, Therapeutic Activities, Therapeutic Exercises Frequency/Duration 1-2 per week for 8-12 weeks Patient Will Be Discharged From Therapy Completion of LTG(s) Evaluation Billing Untimed Code Treatment Minutes 18 Complexity Moderate Certification Information Initial Certification Date 12/17/21 Ending Certification Date 03/19/22
== END 2022-03-06 14:23 | disposition home or self-care (01) ==
PROVIDERS: PCP Internal Medicine; Visit Provider Orthopaedic Surgery Sports Medicine
DX: M25.561 Pain in right knee (principal); M25.461 Effusion, right knee; Z51.89 Encounter for other specified aftercare
CPT/HCPCS: 82728; 97110; 97112; 97140; 97162

== ENCOUNTER 2022-05-15 13:12 | Outpatient (CLI) | payer MEDICARE, BC, SELFPAY ==
--- NOTE | 2022-05-15 14:08 | W.PM.STED ---
Stress Test Note Date Time Seen by Provider: 14:35 Date Seen: 05/15/22 Date of test: 05/15/22 Providers Referring provider: Michele Cabrera Primary care provider: Asha Romo Stress test physician: Marry Armas Stress Test Note Stress test ordered: Stress Echo Indication for test: Dyspnea, hypertrophic cardiomyopathy. Results discussion: Resting EKG: normal sinus rhythm, rate 72 bpm. Resting BP: 163/85 Stress test: Patient was unable to complete this stress test with any proficient C. She became quite dyspneic and unable to exercise on the treadmill, complaining of her legs being weak. This happened probably under 1 minute, likely around 30-40 seconds. I did stop the treadmill but was unable to switch the protocol over to recovery immediately. Thus, the likely time frame of exercise was certainly under 1 minute, probably closer to 30-40 seconds. She did not have chest pain. There is some mild nonspecific scooping in in inferior and lateral V5 V6. As soon as we were able to get a blood pressure after the echo images were done, we obtained blood pressure of 222/96. Patient's dyspnea resolved with lowering pressures. Her last blood pressure that we documented prior to discharge was 181/98. Patient was asymptomatic as far as dyspnea at discharge, had no chest discomfort at any time and was discharged to home. Impression: Equivocal stress test, hypertensive response to exercise. Follow up suggested: Did call and converse with Dr. Cabrera after patient had left. He is recommending switching to Coreg 25 mg b.i.d. if her resting pulse is over 60. He wants her to stop the metoprolol. Her son whom is currently here today will related this to her. I did send a prescription for the Coreg into the pharmacy. He does not want further stress testing ordered at this time, wants to work on getting her blood pressure under better control. They will get blood pressure readings to Dr. Cabrera, they will get her follow-up with her primary care provider. She was discharged to home in stable condition.
[2022-05-15 15:25] VITALS: BP 181/98; PULSE 65
== END 2022-05-15 13:13 | disposition home or self-care (01) ==
PROVIDERS: PCP Internal Medicine; Visit Provider Internal Medicine
DX: I42.2 Other hypertrophic cardiomyopathy (principal); R06.00 Dyspnea, unspecified
CPT/HCPCS: 93016; 93325; 93351

== ENCOUNTER 2022-06-20 08:04 | Outpatient (CLI) | payer MEDICARE, BC, SELFPAY ==
[2022-06-20 10:50] LABS: Chloride* 107 mmol/L (96-114); Potassium* 4.9 mmol/L (3.6-5.1); Sodium* 144 mmol/L (135-149)
[2022-06-20 10:52] LABS: Estimated Glomerular Filt Rate 59 ml/min
[2022-06-20 10:53] LABS: Blood Urea Nitrogen* 26 mg/dL (7-30); Calcium* 9.1 mg/dL (8.4-10.6); Carbon Dioxide* 31 mmol/L (20-32); Glucose* 101 mg/dL (60-115)
== END 2022-06-20 08:05 | disposition home or self-care (01) ==
LOC: NFLDREF 08:04
PROVIDERS: PCP Internal Medicine; Visit Provider Internal Medicine
DX: I42.2 Other hypertrophic cardiomyopathy (principal); I50.30 Unspecified diastolic (congestive) heart failure
CPT/HCPCS: 80048

== ENCOUNTER 2022-06-24 14:20 | Outpatient (CLI) | payer MEDICARE, BC, SELFPAY ==
[2022-06-24 20:15] LABS: Chloride* 102 mmol/L (96-114); Potassium* 4.1 mmol/L (3.6-5.1); Sodium* 141 mmol/L (135-149)
[2022-06-24 20:18] LABS: Carbon Dioxide* 31 mmol/L (20-32); Estimated Glomerular Filt Rate 59 ml/min
[2022-06-24 20:19] LABS: Blood Urea Nitrogen* 20 mg/dL (7-30); Calcium* 9.1 mg/dL (8.4-10.6); Glucose* 127 mg/dL (60-115)
== END 2022-06-24 14:21 | disposition home or self-care (01) ==
LOC: NFLDREF 14:22
PROVIDERS: PCP Internal Medicine; Visit Provider Internal Medicine
DX: R06.02 Shortness of breath (principal); I42.2 Other hypertrophic cardiomyopathy; I50.30 Unspecified diastolic (congestive) heart failure; I51.7 Cardiomegaly
CPT/HCPCS: 80048

== ENCOUNTER 2022-07-02 13:32 | Outpatient (CLI) | payer MEDICARE, BC, SELFPAY | END 2022-07-02 13:33 | disposition home or self-care (01) | LOC: RAD 13:32 | PROVIDERS: PCP Internal Medicine; Visit Provider Internal Medicine | DX: I42.2 Other hypertrophic cardiomyopathy (principal); I07.1 Rheumatic tricuspid insufficiency | CPT/HCPCS: 93306 ==

== ENCOUNTER 2022-09-18 09:27 | Outpatient (CLI) | payer MEDICARE, BC, SELFPAY | END 2022-09-18 09:28 | disposition home or self-care (01) | LOC: NFLDREF 09:29 | PROVIDERS: PCP Internal Medicine; Visit Provider Internal Medicine | DX: I10 Essential (primary) hypertension (principal) | CPT/HCPCS: 80053 ==

== ENCOUNTER 2022-10-01 12:52 | Outpatient (CLI) | payer MEDICARE, BC, SELFPAY | END 2022-10-01 12:53 | disposition home or self-care (01) | PROVIDERS: PCP Internal Medicine | DX: I42.1 Obstructive hypertrophic cardiomyopathy (principal) | CPT/HCPCS: 93306 ==

== ENCOUNTER 2022-11-24 11:26 | Outpatient (CLI) | payer MEDICARE, BC, SELFPAY | END 2022-11-24 11:27 | disposition home or self-care (01) | PROVIDERS: PCP Internal Medicine; Visit Provider Internal Medicine | DX: D50.9 Iron deficiency anemia, unspecified (principal) | CPT/HCPCS: 82728 ==

== ENCOUNTER 2022-12-11 11:42 | Outpatient (CLI) | payer MEDICARE, BC, SELFPAY ==
--- NOTE | 2022-12-11 09:28 | W.ANESCHARGE ---
Anesthesia Charges Start Date/Time Anesthesia Start Date: 12/11/22 Anesthesia Start Time: 12:48 Stop Date/Time Anesthesia Stop Date: 12/11/22 Anesthesia Stop Time: 13:48 Summary Extremes of Age - Over 70 or under 1: MDA
--- NOTE | 2022-12-12 07:45 | W.ANESCHARGE ---
Anesthesia Charges Start Date/Time Anesthesia Start Date: 12/11/22 Anesthesia Start Time: 12:48 Stop Date/Time Anesthesia Stop Date: 12/11/22 Anesthesia Stop Time: 13:48
== END 2022-12-11 11:43 | disposition home or self-care (01) ==
LOC: OP CLINIC 11:42
PROVIDERS: PCP Internal Medicine; Visit Provider Surgery
DX: D50.9 Iron deficiency anemia, unspecified (principal); K63.5 Polyp of colon; K55.20 Angiodysplasia of colon without hemorrhage; K57.30 Diverticulosis of large intestine without perforation or abscess without bleeding; Z98.890 Other specified postprocedural states; K44.9 Diaphragmatic hernia without obstruction or gangrene; K31.89 Other diseases of stomach and duodenum; K92.2 Gastrointestinal hemorrhage, unspecified
CPT/HCPCS: 00813; 43239; 45385; 88305; 99100; J2405

== ENCOUNTER 2022-12-22 10:50 | Outpatient (CLI) | payer MEDICARE, BC, SELFPAY | END 2022-12-22 10:51 | disposition home or self-care (01) | PROVIDERS: PCP Internal Medicine; Visit Provider Internal Medicine | DX: D50.9 Iron deficiency anemia, unspecified (principal) | CPT/HCPCS: 82728 ==

== ENCOUNTER 2023-01-01 13:39 | Outpatient (CLI) | payer MEDICARE, BC, SELFPAY | END 2023-01-01 13:40 | disposition home or self-care (01) | PROVIDERS: PCP Internal Medicine; Visit Provider Family Medicine | DX: R06.02 Shortness of breath (principal); I42.2 Other hypertrophic cardiomyopathy | CPT/HCPCS: 80053; 82803 ==

== ENCOUNTER 2023-01-06 10:21 | Outpatient (CLI) | payer MEDICARE, BC, SELFPAY ==
--- NOTE | 2023-01-06 11:00 | CRLHL7_ITS ---
For Patients: As a result of the Century Cures Act, medical imaging exams and procedure reports are released immediately into your electronic medical record. You may view this report before your referring provider. If you have questions, please contact your health care provider. Indication: FOLLOW UP PULMONARY NODULE, IRON DEFICIENCY ANEMIA Technique: Post contrast CT chest, abdomen and pelvis. 94 cc Isovue 370 intravenous contrast. Please note that all CT scans at this facility use dose modulation, iterative reconstruction, and/or weight-based dosing when appropriate to reduce radiation dose to as low as reasonably achievable. Comparison: CT chest 12/31/2021 Findings: In the chest, stable 3 millimeter right lower lobe pulmonary nodule, . Mild scarring within the right middle lobe. No pleural effusion or infiltrate. No edema or pneumothorax. Visualized thyroid normal. Atherosclerotic changes. No adenopathy. 6.1 cm hiatal hernia. Left shoulder replacement hardware. No vertebral body compression fracture. Mild emphysematous changes. In the abdomen, there is no intrahepatic mass. The gallbladder is absent. No biliary obstruction. Spleen is normal. Normal adrenal glands. Simple cyst arises from the lateral aspect of the right kidney measuring 2.2 cm. Atherosclerotic changes. No aneurysm. Left kidney normal. No hydronephrosis. Pancreas unremarkable. No enlarged retroperitoneal or mesenteric lymph nodes. In the pelvis, the bladder is normal. Normal uterus. Ovaries are unremarkable. No adnexal mass or pelvic free fluid. Mild diverticulosis. No diverticulitis. Appendix normal. Moderate colonic stool. No pelvic or inguinal adenopathy. Left hip replacement hardware. Prominent degenerative disc disease at multiple levels, particularly at T12-L1. No fracture. Facet degeneration. No pars defect or spondylolisthesis. Impression: Stable 3 millimeter right lower lobe pulmonary nodule which does not require follow-up. Mild sigmoid diverticulosis. No bowel obstruction or inflammation. Please note that all CT scans at this facility use dose modulation, iterative reconstruction, and/or weight-based dosing when appropriate to reduce radiation dose to as low as reasonably achievable. Dictated by Truman Butts MD @ 01/08/2023 10:38:32 AM (Electronically Signed)
== END 2023-01-06 10:22 | disposition home or self-care (01) ==
LOC: CT 10:22
PROVIDERS: PCP Internal Medicine; Visit Provider Internal Medicine
DX: R91.1 Solitary pulmonary nodule (principal); K57.30 Diverticulosis of large intestine without perforation or abscess without bleeding; D50.9 Iron deficiency anemia, unspecified
CPT/HCPCS: 71260; 74177; Q9967

== ENCOUNTER 2023-01-22 11:04 | Outpatient (CLI) | payer MEDICARE, BC, SELFPAY | END 2023-01-22 11:05 | disposition home or self-care (01) | LOC: NFLDREF 11:07 | PROVIDERS: PCP Internal Medicine; Visit Provider Internal Medicine | DX: D50.9 Iron deficiency anemia, unspecified (principal) | CPT/HCPCS: 82728 ==

== ENCOUNTER 2023-02-12 12:35 | Outpatient (CLI) | payer MEDICARE, BC, SELFPAY | END 2023-02-12 12:36 | disposition home or self-care (01) | PROVIDERS: PCP Internal Medicine; Visit Provider Internal Medicine | DX: I42.2 Other hypertrophic cardiomyopathy (principal); I51.7 Cardiomegaly | CPT/HCPCS: 93306 ==

== ENCOUNTER 2023-02-24 12:48 | Outpatient (CLI) | payer MEDICARE, BC, SELFPAY ==
--- NOTE | 2023-02-24 13:20 | CRLHL7_ITS ---
For Patients: As a result of the Century Cures Act, medical imaging exams and procedure reports are released immediately into your electronic medical record. You may view this report before your referring provider. If you have questions, please contact your health care provider. BILATERAL SCREENING MAMMOGRAM WITH COMPUTER-AIDED DETECTION AND TOMOSYNTHESIS TECHNIQUE: CC and MLO views were obtained. These mammographic images have been obtained using full-field digital technique. These mammographic images were interpreted with the benefit of computer-aided detection. Breast Tomosynthesis was used in this interpretation. COMPARISON FILM: 08/13/21, 07/09/20, 03/21/19. FINDINGS: There are scattered areas of fibroglandular density IMPRESSION: There is no radiographic evidence for malignancy. ASSESSMENT: BI-RADS Category 1: Negative RECOMMENDATION: Routine screening mammogram in 1 year. A lay language report of this examination will be provided to the patient. Truman Butts M.D. Diagnostic Radiologist [email or web address] GABRIEL/Dictated by: Truman Butts MD @ 02/25/2023 11:53:00 AM (Electronically Signed)
== END 2023-02-24 12:49 | disposition home or self-care (01) ==
LOC: MAMMO 12:50
PROVIDERS: PCP Internal Medicine; Visit Provider Internal Medicine
DX: Z12.31 Encounter for screening mammogram for malignant neoplasm of breast (principal)
CPT/HCPCS: 77063; 77067

== ENCOUNTER 2023-02-27 16:20 | Outpatient (CLI) | payer MEDICARE, BC, SELFPAY | END 2023-02-27 16:21 | disposition home or self-care (01) | PROVIDERS: PCP Internal Medicine; Visit Provider Internal Medicine Cardiovascular Disease | DX: D50.9 Iron deficiency anemia, unspecified (principal); I10 Essential (primary) hypertension; E78.5 Hyperlipidemia, unspecified; I50.30 Unspecified diastolic (congestive) heart failure | CPT/HCPCS: 80048; 83540; 83880; 84443 ==

== ENCOUNTER 2023-03-26 10:35 | Outpatient (CLI) | payer MEDICARE, BC, SELFPAY | END 2023-03-26 10:36 | disposition home or self-care (01) | LOC: NFLDREF 03-30 03:06 | PROVIDERS: PCP Internal Medicine; Referring Provider Internal Medicine; Visit Provider Internal Medicine | DX: D50.9 Iron deficiency anemia, unspecified (principal); D50.0 Iron deficiency anemia secondary to blood loss (chronic) | CPT/HCPCS: 82728 ==

== ENCOUNTER 2023-06-15 10:25 | Outpatient (CLI) | payer MEDICARE, BC, SELFPAY ==
--- OUTSIDE RECORDS SUMMARY | 2023-06-15 15:37 | XMS_ITS | Clinical Summary ---
Author Name Unknown Organization [employer] [facility] Address [place], [place] [address] Care Team Providers Care Chief Fundraising Officer Name Role Phone Asha Romo MD Primary Care Provider [phone]- [phone] Allergies Active Allergy Reactions Criticality Noted Date Comments Latex Other - Describe In Comment Field 03/23/2006 swell up like a balloon Meperidine Nausea And Vomiting 03/23/2006 Abstracted from [facility] Medications Medication Sig Dispensed Refills Start Date End Date Status busPIRone (BUSPAR) 10 mg tablet Take 10 mg by mouth 2 times daily. 0 06/28/2021 Active gabapentin (NEURONTIN) 300 mg capsule Take 300 mg by mouth once daily. 0 07/02/2021 Active pramipexole (MIRAPEX) 0.25 mg tablet Take 0.25 mg by mouth 2 times daily. 0 08/09/2021 Active rosuvastatin (CRESTOR) 20 mg tablet Take 20 mg by mouth once daily. 0 09/06/2021 Active cholecalciferol (Vitamin D) 1,000 unit capsule Take 1 Capsule (1,000 units) by mouth once daily. 0 09/12/2021 Active acetaminophen (TYLENOL EXTRA STRGTH) 500 mg tablet Take 500 mg by mouth every 6 hours if needed for Pain. Max acetaminophen dose: 4000mg in 24 hrs. 0 Active diphenhydrAMINE (BENADRYL) 25 mg tablet Take 1 Tablet (25 mg) by mouth at bedtime if needed. 0 02/25/2023 Active diphenhydrAMINE (BENADRYL) 50 mg capsule Take 1 Capsule (50 mg) by mouth at bedtime if needed. 0 02/25/2023 Active DULoxetine (CYMBALTA) 30 mg Delayed-release capsule Take 1 Capsule (30 mg) by mouth once daily. 0 02/25/2023 Active DULoxetine (CYMBALTA) 60 mg Delayed-release capsule Take 1 Capsule (60 mg) by mouth once daily. 0 02/25/2023 Active bisoprolol (ZEBETA) 5 mg tabletIndications: Chronic heart failure with preserved ejection fraction (HC),Hypertension Take 0.5 Tablets (2.5 mg) by mouth once daily. 45 Tablet 3 03/06/2023 Active albuterol HFA (PRO-AIR; VENTOLIN; PROVENTIL) 90 mcg/actuation inhaler Inhale 1 Puff by mouth every 4 hours if needed for Shortness Of Breath. 0 01/01/2023 Active omeprazole (PRILOSEC) 20 mg Delayed-Release capsule Take 20 mg by mouth. 0 12/23/2022 Acti ve Trelegy Ellipta 100-62.5-25 mcg inhaler Inhale 1 Puff by mouth once daily. 0 01/15/2023 Active furosemide (LASIX) 20 mg tabletIndications: Chronic heart failure with preserved ejection fraction (HC) Take 1 Tablet (20 mg) by mouth every morning. 90 Tablet 3 03/20/2023 Active amLODIPine (NORVASC) 5 mg tabletIndications: Hypertension Take 1 Tablet (5 mg) by mouth once daily. 90 Tablet 3 03/20/2023 Active dapagliflozin propanediol (Farxiga) 10 mg tabletIndications: Congestive heart failure, unspecified HF chronicity, unspecified heart failure type (HC) Take 1 Tablet (10 mg) by mouth once daily. 90 Tablet 3 03/20/2023 Active Active Problems No known active problems Encounters Date Type Department Care Team Description 05/08/2023 1:00 PM CHARTING CLERK Office Visit [facility] [address] [place] [address] Nilton Olea MD 04/15/2023 Telephone [facility] [place] [address] [facility] [address] [place] [address] Carl Daugherty MD Results (Cardiac CTA) 04/09/2023 10:26 AM CHARTING CLERK - 04/09/2023 11:59 PM CHARTING CLERK Hospital Encounter [facility] [address] [place] [address] Carl Daugherty MD Shortness of breath; Chest pain, atypical 04/09/2023 Travel 04/06/2023 Telephone [facility] [place] [address] [facility] [address] [place] [phone] Elvira Murray NP Results (BMP) 04/03/2023 7:20 AM CDT Orders Only [facility] [address] [place] [address] Lab, [facility] 04/03/2023 Travel 03/20/2023 1:40 PM CDT Office Visit [facility] [place] [address] [facility] [address] [place] [phone] Elvira Murray NP Follow Up (F/U to review medications, SOB has increased, both hands are shaking, and edema in both legs.) 03/20/2023 Telephone [facility] [place] [address] [facility] [address] [place] [phone] Elvira Murray NP Medication Management (Farxiga ) 03/20/2023 Travel 03/19/2023 Telephone [facility] [address] [place] [address] Nilton Olea MD Medication Management from Last 3 Months Social History Tobacco Use Types Packs/Day Years Used Date Smoking Tobacco: Former Cigarettes Smokeless Tobacco: Never Tobacco Cessation:Counseling Given: No Comments:patient quit smoking 34 years ago Alcohol Use Standard Drinks/Week Comments Yes 0 (1 standard drink = 0.6 oz pur e alcohol) occasionally PHQ-2 Answer Date Recorded PHQ-2 TOTAL SCORE 3 09/25/2022 Social Connections Answer Date Recorded Frequency of Communication with Friends and Fami ly Not on file 09/12/2021 Sex and Gender Information Value Date Recorded Sex Assigned at Not on file Gender Identity Not on file Sexual Orientation Not on file Obstetrics History Last Filed Vital Signs Vital Sign Reading Time Taken Comments Blood Pressure 179/111 04/09/2023 10:36 AM CHARTING CLERK Pulse 99 04/09/2023 10:36 AM CHARTING CLERK Temperature 36.8 ??C (98.2 ??F) 09/05/2022 11:57 PM C DT Respiratory Rate 17 04/09/2023 10:36 AM CHARTING CLERK Oxygen Saturation 97% 04/09/2023 10:36 AM CHARTING CLERK Inhaled Oxygen Concentration - - Weight 88.5 kg (195 lb) 04/09/2023 10:36 AM CHARTING CLERK Height 160 cm (5' 3) 04/09/2023 10:36 AM CHARTING CLERK Body Mass Index 34.54 04/09/2023 10:36 AM CHARTING CLERK Plan of Treatment Health Maintenance Due Date Last Done Comments Pneumococcal series for age 65+ (1 of 2 - PCV) 1953 Tdap 1958 Hepatitis C screening for ag e 18-79 1965 Tetanus booster 1967 Zoster (shingles) series for age 50+ (1 of 2) 1997 DEXA/DXA scan for age 65+ 2012 Medicare Wellness for age 65+ 2012 Influenza for age 65+ 01/30/2023 Depression screening for age 12+ 09/30/2023 09/30/19, 09/25/2022 BMI (ht and wt on same day) for age 18+ 03/20/2024 03/20/2023, 01/13/2023, 10/03/2022, Additional history exists COVID-19 vaccine series Completed 03/23/20, 11/25/2022, 06/27/2020 Procedures Procedure Name Priority Date/Time Associated Diagnosis Comments CT CARDIAC CORONARY ARTERIES DUAL READ Routine 04/09/2023 11:48 AM CHARTING CLERK Shortness of breath Chest pain, atypical BASIC METABOLIC PANEL Routine 04/03/2023 7:18 AM CDT Chronic heart failure with preserved ejection fraction (HC) from Last 3 Months Results * CT CARDIAC CORONARY ARTERIES DUAL READ (04/09/2023 11:48 AM CHARTING CLERK) Anatomical Region Laterality Modality HEART Computed Tomogra phy 04/09/2023 11:4 9 AM CHARTING CLERK Impressions 04/13/2023 1:59 PM CHARTING CLERK 1. ??Large paraesophageal hiatal hernia. ?? 2. ??No other acute or suspicious extracardiac imaging abnormality. 3. ??Please see dedicated cardiac imaging report. ?? Please note that all CT scans at this facility use dose modulation, iterative reconstruction and/or weight-based dosing when appropriate to reduce radiation dose to as low as reasonably achievable. ?? Bon Nguyen M.D. Pediatric/Diagnostic Radiologist [email or web address]/mark / ? Narrative 04/13/2023 1:59 PM CHARTING CLERK ?[facility] ? Cardiac CT Report ??MRN: ?[id number] ?Name: ? PEG DOWNS ?: ?Scan Date: ?Accession Number: ?[id number] ? Electronically signed by Bruce Pretty 12:27:56 VITALS HEIGHT: 63 in ?(160 cm) WEIGHT: 205 lbs ?(93 kgs) BSA: 1.95 m^2 BMI: 36 kg/m^2 BP: 179 / 111 mmHg BASELINE HR: 61 BPM HEART RHYTHM: Normal Sinus Rhythm FINAL IMPRESSION 1. ?? Prominent non-obstructive coronary artery disease, CAC score of 340, 81st percentile for age/sex. 2. ?? No coronary lesion to account for symptoms. RECOMMENDATIONS: - Patient exhibits elevated coronary atherosclerosis burden and will likely benefit from aggressive risk factor modification. STUDY QUALITY: Study quality is good. CAD-RADS: CAD-RADS Classification 2 (25-49% stenosis). CALCIUM SCORING: Total coronary artery calcium score 340. JEFFREY percentile based on age, gender, and race is 81. DOMINANCE: Right dominant coronary artery system. LM: The LM has spotty calcification. There is no LM stenosis. LAD: The proximal LAD has partially calcified atherosclerosis. There is a <25% proximal LAD stenosis. The mid LAD has partially calcified atherosclerosis. There is a 25-49% mid LAD stenosis. There is a <25% distal LAD stenosis. D1: The first diagonal is normal. LCX: The proximal LCx has partially calcified atherosclerosis. There is a <25% proximal LCx stenosis. There is a <25% mid LCx stenosis. There is no distal LCx stenosis. OM1: The first obtuse marginal is normal. OM2: The second obtuse marginal is normal. RCA: The RCA is normal. RIGHT PDA: The right PDA is normal. RIGHT PLB: The right posterolateral branch is normal. OTHER FINDINGS: Proximal ascending aorta: Normal size. Pericardium: Normal without effusion. Left atrial appendage: No thrombus. CALCIUM SCORING TABLE . . ? Number of Lesions Pattern of Calcium Volume Total Score +-------+ + +--------+ + LM ?14 LAD ? 258 LCx ?67 RCA ? 1 Ramus ? '-------+ + +--------+ ' SCAN INFO TEST TYPE: ??Calcium score, Coronary CT Angiography SCANNER FORESTRY TECHNICAL OFFICER: ??SIEMENS SCANNER MODEL: ??Neutral Space DOSE REDUCTION ALGORITHM: ??Helical with dose modulation PHASE UNITS: ??% START PHASE: ??67 % END PHASE: ??72 % EKG GATED: ??Yes PRE-CONTRAST: ??Yes POST-CONTRAST: ??Yes 3D RECONSTRUCTION: ??Yes PACEMAKER ?DEVICE: ??No GENERAL ?CONTRAST AGENT ?CONTRAST AGENT USED?: ??Yes ?TYPE: ??Omnipaque 350 ?DOSE: ??105 ml ?RATE: ??6.5 ml/s ?ROUTE: ??IV ?ARM: ??Right ?BOLUS TECHNIQUE: ??Biphasic ?SERUM CREATININE: ??1.02 mg/dL ?GFR: ??56.15 ml/min/1.73m^2 ?CREATININE DATE: ?CT CONTRAST REACTION: ??None ?MEDICATION ADMINISTERED DURING SCAN ?TYPE: ??Nitroglycerin, sublingual, B-Blockers ?NITROGLYCERIN, TOTAL DOSE: ??0.8 mg ?B-KELLEN TYPE: ??Oral ?B-KELLEN NAME, ORAL: ??Metoprolol tartrate ?B-BLOCKERS, ORAL DOSE: ??100 mg ?RADIATION DOSE ?DLP: ??372 ?KV: ??110 ?SETUP ?PATIENT TYPE: ??Outpatient ?REASON(S) FOR SCAN: ??Chest pain ?REFERRING PHYSICIAN: ??JOSE G CHRISTOPHER ?ATTENDING PHYSICIAN: ??CARL DAUGHERTY ?TECHNOLOGIST: ??Stephanie Hung BILLELOY Patient Account ?[id number] ICD10 Codes ?R06.02, R07.89 Report generated by [employer], a product of [employer] For Patients: As a result of the 21st Century Cures Act, medical imaging exams and procedure reports are released immediately into your electronic medical record. ??You may view this report before your referring provider. ?? If you have questions, please contact your health care provider. OVER-READ ??OVER-READ ??OVER-READ OVER-READ: DETAILED RADIOLOGY EXTRACARDIAC OVER-READ OF CARDIAC CT 04/09/2023 TECHNIQUE: ??Please see cardiology report for technical information. ??105 cc Omnipaque-350 intravenous contrast. This exam is being performed in conjunction with the services provided by the [facility] ([facility]). CLINICAL HISTORY: ??Cardiac CTA over-read. ? FINDINGS: Lungs: Minimal linear scarring. ??The lungs are clear. Pleural Spaces: No pleural effusions. Pulmonary Arteries: No filling defects. Aorta: No signs for dissection. Mediastinum: No adenopathy. Miscellaneous: Large hiatal hernia. ??There is a large paraesophageal component. ?? Carl Daugherty MD CT * (ABNORMAL) BASIC METABOLIC PANEL (04/03/2023 7:18 AM CDT) SODIUM 142 136 - 145 mmol/L 04/03/2023 1:50 PM CDT [facility] POTASSIUM 4.2 3.5 - 5.1 mmol/L 04/03/2023 1:50 PM CDT [facility] CHLORIDE 103 98 - 107 mmol/L 04/03/2023 1:50 PM CDT [facility] CO2,TOTAL 28 22 - 29 mmol/L 04/03/2023 1:50 PM CDT [facility] ANION GAP 11 5 - 18 04/03/2023 1:50 PM CDT [facility] GLUCOSE 100(H) 70 - 99 mg/dL 04/03/2023 1:50 PM CDT [facility] CALCIUM 9.4 8.8 - 10.2 mg/dL 04/03/2023 1:50 PM CDT [facility] BUN 25(H) 8 - 23 mg/dL 04/03/2023 1:50 PM CDT [facility] CREATININE 1.02(H) 0.50 - 0.90 mg/dL 04/03/2023 1:50 PM CDT [facility] BUN/CREAT RATIO 25(H) 10 - 20 1:50 PM CDT [facility] eGFR 57(L) >90 mL/min/1.7 3m2 04/03/2023 1:50 PM CDT [facility] Comment:As of 2021, eG FR is calculated by the CKD-EPI creatinine equation without race adjustment. ??eGFR can be influenced by muscle mass, exercise, and diet. ??The reported eGFR is an estimation only and is only applicable if the renal function is stable. Blood BLOOD SPECIMEN / Unknown Venipuncture / Unknown 04/03/2023 7:18 AM CDT 04/03/2023 7:18 AM CDT Elvira Murray NP CHEMISTRY [facility] [address] [place] [address], [place] from Last 3 Months Advance Directives Documents on File Type Date Recorded Patient Agricultural Service Technician Expl anation Healthcare Directive 07/30/2022 INVALID , MISSING PGS 7-8, 07/30/2022 Latest Code Status on File Code Status Date Activated Date Inactivated Comments Full Code 09/03/2022 10:21 AM 09/06/2022 1:49 PM Question Answer Comments Code Status Discussion: Reviewed Preferences Care Teams Chief Fundraising Officer Relationship Specialty Start Date End Date Asha Romo MD [address] [place] [id number] PCP - General Internal Medicine 09/12/21
== END 2023-06-15 10:26 | disposition home or self-care (01) ==
LOC: NFLDREF 15:27
PROVIDERS: PCP Internal Medicine; Referring Provider Internal Medicine; Visit Provider Internal Medicine
DX: D50.9 Iron deficiency anemia, unspecified (principal)
CPT/HCPCS: 82728

== ENCOUNTER 2023-12-25 07:52 | Outpatient (CLI) | payer MEDICARE, BC, SELFPAY ==
--- OUTSIDE RECORDS SUMMARY | 2023-12-25 07:55 | XMS_ITS | Clinical Summary ---
Author Organization [facility] [facility] Address [place], [place] [address] Care Team Providers Care Extruder Operator Helper Name Role Phone Asha Romo MD Primary Care Provider +1- [phone] Allergies Active Allergy Reactions Criticality Noted Date Comments Latex Other - Describe In Comment Field 03/23/2006 swell up like a balloon Meperidine Nausea And Vomiting 03/23/2006 Abstracted from [facility] Medications Medication Sig Dispensed Refills Start Date End Date Status busPIRone (BUSPAR) 10 mg tablet Take 10 mg by mouth 2 times daily. 06/28/2021 Active gabapentin (NEURONTIN) 300 mg capsule Take 300 mg by mouth once daily. 07/02/2021 Active pramipexole (MIRAPEX) 0.25 mg tablet Take 0.25 mg by mouth 2 times daily. 08/09/2021 Active rosuvastatin (CRESTOR) 20 mg tablet Take 20 mg by mouth once daily. 09/06/2021 Active cholecalciferol (Vitamin D) 1,000 unit capsule Take 1 Capsule (1,000 units) by mouth once daily. 0 09/12/2021 Active acetaminophen (TYLENOL EXTRA STRGTH) 500 mg tablet Take 500 mg by mouth every 6 hours if needed for Pain. Max acetaminophen dose: 4000mg in 24 hrs. Active diphenhydrAMINE (BENADRYL) 25 mg tablet Take [...] hours if needed for Shortness Of Breath. 01/01/2023 Active omeprazole (PRILOSEC) 20 mg Delayed-Release capsule Take 20 mg by mouth. 12/23/2022 Acti ve Trelegy Ellipta 100-62.5-25 mcg inhaler Inhale 1 Puff by mouth once daily. 01/15/2023 Active furosemide (LASIX) 20 mg tabletIndications: Chronic heart failure with preserved ejection fraction (HC) Take 1 Tablet (20 mg) by mouth every morning. 90 Tablet 3 03/20/2023 Active amLODIPine (NORVASC) 5 mg tabletIndications: Hypertension Take 1 Tablet (5 mg) by mouth once daily. 90 Tablet 3 03/20/2023 Active Farxiga 10 mg tabletIndications: Congestive heart failure, unspecified HF chronicity, unspecified heart failure type (HC) Take 1 Tablet (10 mg) by mouth once daily. 90 Tablet 3 09/08/2023 Active Active Problems No known active problems Social History Tobacco Use Types Packs/Day Years [...] Comments Blood Pressure 179/111 04/09/2023 10:36 AM FORENSICS ANALYST Pulse 99 04/09/2023 10:36 AM FORENSICS ANALYST Temperature 36.8 ??C (98.2 ??F) 09/05/2022 11:57 PM C DT Respiratory Rate 17 04/09/2023 10:36 AM FORENSICS ANALYST Oxygen Saturation 97% 04/09/2023 10:36 AM FORENSICS ANALYST Inhaled Oxygen Concentration - - Weight 88.5 kg (195 lb) 04/09/2023 10:36 AM FORENSICS ANALYST Height 160 cm (5' 3) 04/09/2023 10:36 AM FORENSICS ANALYST Body Mass Index 34.54 04/09/2023 10:36 AM FORENSICS ANALYST Plan of Treatment Upcoming Encounters Date Type Department Care Team (Late st Contact Info) Description 12/29/2023 1:40 PM CDT Phone Office Visit [facility] [address] [facility] [place] [address] Lakesha Tracy PA [address] [place] [address] [place] [address] Health Maintenance Due Date Last Done Comments Pneumococcal series for age 65+ (1 of 2 - PCV) 1953 Tdap 1958 Hepatitis C screening for ag e 18-79 1965 Tetanus booster 1967 Zoster (shingles) series for age 50+ (1 of 2) 1997 DEXA/DXA scan for age 65+ 2012 Medicare Wellness for age 65+ 2012 COVID-19 vaccine series ( season) 2023 03/23/2023, 11/25/2022, 06/27/2020 Depression screening for age 12+ 09/30/2023 09/30/19, 09/25/2022 Influenza for age 65+ 01/31/2024 BMI (ht and wt on same day) for age 18+ 03/20/2024 03/20/2023, 01/13/2023, 10/03/2022, Additional history exists Advance Directives Documents on File Type Date Recorded Patient Ammonia Box Tender Expl anation Healthcare Directive 07/30/2022 INVALID , MISSING PGS 7-8, 07/30/2022 * Full Code (Latest Code Status on File) Date Activated Date Inactivated Comments 09/03/2022 10:21 AM 09/06/2022 1:49 PM Question Answer Comments Code Status Discussion: Reviewed Preferences Care Teams Extruder Operator Helper Relationship Specialty Start Date End Date Asha Romo MD [address] [place] [address] PCP - General Internal Medicine 09/12/21
--- NOTE | 2023-12-25 08:15 | CRLHL7_ITS ---
For Patients: As a result of the Century Cures Act, medical imaging exams and procedure reports are released immediately into your electronic medical record. You may view this report before your referring provider. If you have questions, please contact your health care provider. Indication: RT HIP PAIN, OSTEOARTHRITIS Comparison: None. Procedure : Informed consent was obtained. The site was marked. Time-out was performed. The skin of the right hip was cleansed with ChloraPrep. A sterile drape was placed. 8 cc of 1 percent lidocaine was administered for superficial anesthesia. Subsequently a 22 gauge spinal needle was introduced into the right shoulder joint under intermittent fluoroscopic guidance. Injection of 7 cc 1 percent lidocaine and 2 cc 40 milligram/cc Depo-Medrol then performed. The needle was removed and hemostasis achieved with direct pressure. A dressing was placed. The patient tolerated the procedure well without immediate complication. Total fluoroscopy time 21 seconds. Impression: Successful fluoroscopically guided right hip injection with 80 milligrams of Depo-Medrol. Dictated by Truman Butts MD @ 12/25/2023 2:59:14 PM (Electronically Signed)
== END 2023-12-25 07:53 | disposition home or self-care (01) ==
LOC: RAD 07:53
PROVIDERS: PCP Internal Medicine; Visit Provider Orthopaedic Surgery Sports Medicine
DX: M16.11 Unilateral primary osteoarthritis, right hip (principal); M25.551 Pain in right hip
CPT/HCPCS: 20610; 77002; J1010; Q9966

== ENCOUNTER 2024-01-18 09:17 | Outpatient (CLI) | payer MEDICARE, BC, SELFPAY ==
--- OUTSIDE RECORDS SUMMARY | 2024-01-19 08:35 | XMS_ITS | Clinical Summary ---
Author Organization [employer] [facility] Address [place], [place] [address] Care Team Providers Care Certified Mortician Name Role Phone Asha Romo MD Primary Care Provider +1- [phone] Allergies Active Allergy Reactions Criticality Noted Date Comments Latex Other - Describe In Comment Field 03/23/2006 swell up like a balloon Meperidine Nausea And Vomiting 03/23/2006 Abstracted from [facility] Medications Medication Sig Dispensed Refills Start Date [...] once daily. 90 Tablet 3 09/08/2023 Active CPAPIndications:Ob structive sleep apnea syndrome,Hypersomn ia due to medical condition CPAP (E0601) machine for home use at pressure: 4-10 cmH2O, Choice of mask (A7030 or A7034) w/full face cushion (A7031) x1/mo, nasal cushion (A7032) x2/mo, or nasal pillows (A7033) x 2/mo; Heated humidifier (E0562) x 1/5 year, Humidifier chamber (A7046) x 1/6mo, Chinstrap (A7036) x 1/6mo, Heated tubing (A4604) x 1/3mo, Headgear (A7035) x 1/6mo, Filters: Disposable (A7038) x 2pk/1mo & Reusable (A7039) x 1pk/6mo; Length of Need: 99 months; Frequency of use: Daily DME: [facility] RESMED MACHINE ONLY PLEASE TAG US IN AIRVIEW PATIENT RETURNED MACHINE FOR NON-COMPLIANCE HAD NEW HOME STUDY 11/10/23, AHI: 30.5/11.8 (4%) 1 Each 12/29/2023 Active Active Problems No known active problems Encounters Date Type Department Care Team Description 01/15/2024 Telephone [facility] [address] [place] [phone] Lakesha Tracy PA Concerns 01/15/2024 Telephone [facility] [address] [place] [phone] Lakesha Tracy PA Follow Up 01/13/2024 Telephone [facility] [address] [place] [phone] Lakesha Tracy PA Questions (Sleep Study ) 12/29/2023 1:40 PM CDT Phone Office Visit [facility] [address] [place] [phone] Lakesha Tracy PA Sleep Follow-up 12/29/2023 Travel from Last 3 Months Social History Tobacco [...] Comments Blood Pressure 179/111 04/09/2023 10:36 AM COGNOS BI DEVELOPER Pulse 99 04/09/2023 10:36 AM COGNOS BI DEVELOPER Temperature 36.8 ??C (98.2 ??F) 09/05/2022 11:57 PM C DT Respiratory Rate 17 04/09/2023 10:36 AM COGNOS BI DEVELOPER Oxygen Saturation 97% 04/09/2023 10:36 AM COGNOS BI DEVELOPER Inhaled Oxygen Concentration - - Weight 88.5 kg (195 lb) 04/09/2023 10:36 AM COGNOS BI DEVELOPER Height 160 cm (5' 3) 04/09/2023 10:36 AM COGNOS BI DEVELOPER Body Mass Index 34.54 04/09/2023 10:36 AM COGNOS BI DEVELOPER Plan of Treatment Health Maintenance Due Date [...] Documents on File Type Date Recorded Patient Linux Network Engineer Expl anation Healthcare Directive 07/30/2022 INVALID , MISSING PGS 7-8, 07/30/2022 * Full Code (Latest Code Status on File) Date Activated Date Inactivated Comments 09/03/2022 10:21 AM 09/06/2022 1:49 PM Question Answer Comments Code Status Discussion: Reviewed Preferences Care Teams Certified Mortician Relationship Specialty Start Date End Date Asha Romo MD [address] [place] [address] PCP - General Internal Medicine 09/12/21
== END 2024-01-18 09:18 | disposition home or self-care (01) ==
LOC: NFLDREF 01-19 08:32
PROVIDERS: PCP Internal Medicine; Referring Provider Internal Medicine; Visit Provider Internal Medicine
DX: D64.9 Anemia, unspecified (principal); D50.9 Iron deficiency anemia, unspecified
CPT/HCPCS: 82728

== ENCOUNTER 2024-07-29 13:11 | Outpatient (CLI) | payer MEDICARE, BC, SELFPAY ==
[2024-07-29 15:36] LABS: Sodium* 138 mmol/L (135-149)
[2024-07-29 15:39] LABS: Creatinine* 0.8 mg/dL (0.5-1.5); Estimated Glomerular Filt Rate 76 ml/min; Magnesium* 1.7 mg/dL (1.5-2.6)
== END 2024-07-29 13:12 | disposition home or self-care (01) ==
LOC: NPINS 13:18
PROVIDERS: PCP Internal Medicine; Visit Provider Nurse Practitioner
DX: I42.2 Other hypertrophic cardiomyopathy (principal)
CPT/HCPCS: 82565; 83735; 84132; 84295

== ENCOUNTER 2024-10-05 09:45 | Outpatient (CLI) | payer MEDICARE, BC, SELFPAY ==
--- NOTE | 2024-10-05 10:15 | CRLHL7_ITS ---
For Patients: As a result of the Century Cures Act, medical imaging exams and procedure reports are released immediately into your electronic medical record. You may view this report before your referring provider. If you have questions, please contact your health care provider. Indication: Right hip pain Comparison: 12/25/2023 Procedure : Informed consent was obtained. The site was marked. Time-out was performed. The skin of the right hip was cleansed with ChloraPrep. A sterile drape was placed. 8 cc of 1 percent lidocaine was administered for superficial anesthesia. Subsequently a 22 gauge spinal needle was introduced into the right hip joint under intermittent fluoroscopic guidance. Injection of 2 cc nonionic Omnipaque 240 contrast confirmed intra-articular location. Subsequently 7 cc 1 percent lidocaine and 2 cc 40 milligram per cc Depo-Medrol then injected into the right hip. The needle was removed and hemostasis achieved with direct pressure. A dressing was placed. The patient tolerated the procedure well without immediate complication. Total fluoroscopy time 45 seconds. Impression: Successful fluoroscopically guided right hip injection with 80 milligrams of Depo-Medrol. Dictated by Truman Butts MD @ 10/05/2024 11:30:14 AM (Electronically Signed)
== END 2024-10-05 09:46 | disposition home or self-care (01) ==
LOC: RAD 09:47
PROVIDERS: PCP Internal Medicine; Visit Provider Orthopaedic Surgery Sports Medicine
DX: M16.11 Unilateral primary osteoarthritis, right hip (principal); M25.551 Pain in right hip
CPT/HCPCS: 20610; 77002; Q9966

== ENCOUNTER 2024-11-09 14:32 | Outpatient (CLI) | payer MEDICARE, BC, SELFPAY | END 2024-11-09 14:33 | disposition home or self-care (01) | LOC: RAD 14:35 | PROVIDERS: PCP Internal Medicine; Visit Provider Internal Medicine | DX: I42.2 Other hypertrophic cardiomyopathy (principal); I51.7 Cardiomegaly; I34.0 Nonrheumatic mitral (valve) insufficiency | CPT/HCPCS: 93306 ==

== ENCOUNTER 2025-01-24 07:30 | Outpatient (CLI) | payer MEDICARE, BC, SELFPAY | END 2025-01-24 07:31 | disposition home or self-care (01) | LOC: NFLDREF 01-26 14:13 | PROVIDERS: PCP Internal Medicine; Referring Provider Internal Medicine; Visit Provider Internal Medicine | DX: D50.0 Iron deficiency anemia secondary to blood loss (chronic) (principal) | CPT/HCPCS: 82728 ==

== ENCOUNTER 2025-02-02 08:00 | Outpatient (RCR) | payer MEDICARE, BC, SELFPAY ==
[2022-10-31] VITALS (9 sets, daily range): BP systolic 130–168; BP diastolic 66–94; PULSE 64–100; RESP 16–18; TEMP 36.4–36.9; O2SAT 94–100
--- NOTE | 2022-10-31 15:50 | ONC.NURNOTE ---
alert and oriented. first unit of blood started. jose e well. nurse to nurse given to medical facilities section director. Pt brought to med surg via w/c at 1612
[2022-10-31] MEDS: FUROSEMIDE 10 MG/ML inj 20 MG IVP (18:26)
--- NOTE | 2022-10-31 23:09 | PC.NURSE ---
Shift [id number]- Patient arrives to finish blood transfusion. She tolerates without issue. Lasix given between units.
--- NOTE | 2022-11-01 00:20 | PC.NURSE ---
Discharge Summary: Patient pleasant and cooperative. Afebrile. Blood transfusion completed at 2300. No s/s of transfusion reaction. SL discontinued with tip intact. Patient discharged home at 2345 with all personal belongings.
--- NOTE | 2025-01-27 16:15 | ONC.NURNOTE ---
diagnosis: restless legs syndrome
[2025-02-02 08:50] VITALS: BP 155/90; PULSE 79; RESP 16; TEMP 36.3; O2SAT 94
[2025-02-02] MEDS: IRON SUCROSE COMPLEX 200 MG in 0.9 % SODIUM CHLORIDE 100 ml 100 ML 440 MG IVPB (09:11)
[2025-02-02 09:28] VITALS: BP 125/76; PULSE 77; RESP 16; TEMP 36.5; O2SAT 94
[2025-02-02 10:02] VITALS: BP 127/73; PULSE 73; RESP 16; TEMP 36.5; O2SAT 94
== END 2025-02-02 23:59 | disposition home or self-care (01) ==
LOC: CCIC 08:00
PROVIDERS: PCP Internal Medicine; Referring Provider Internal Medicine; Visit Provider Internal Medicine Cardiovascular Disease
DX: I11.0 Hypertensive heart disease with heart failure (principal); I50.30 Unspecified diastolic (congestive) heart failure; D50.9 Iron deficiency anemia, unspecified; I42.1 Obstructive hypertrophic cardiomyopathy; R63.5 Abnormal weight gain; E78.5 Hyperlipidemia, unspecified; G25.81 Restless legs syndrome
CPT/HCPCS: 36415; 36430; 84443; 86850; 86900; 86901; 86922; 96365; J1756; J1940; P9016

== ENCOUNTER 2025-03-06 09:16 | Outpatient (CLI) | payer MEDICARE, BC, SELFPAY ==
--- NOTE | 2025-03-06 09:45 | CRLHL7_ITS ---
For Patients: As a result of the Century Cures Act, medical imaging exams and procedure reports are released immediately into your electronic medical record. You may view this report before your referring provider. If you have questions, please contact your health care provider. INDICATION: BILATERAL SCREENING MAMMOGRAM, ASYMPTOMATIC 79 Y/O FEMALE COMPARISON: 02/24/2023, 08/13/2021, 07/09/2020 TECHNIQUE: Digital mammogram in CC and MLO projections including computer-aided detection (CAD) and tomosynthesis. BREAST COMPOSITION: There are scattered areas of fibroglandular density. FINDINGS: No suspicious findings. ASSESSMENT: BI-RADS 1 Negative RECOMMENDATION: Annual screening mammogram. A lay language report of this examination will be provided to the patient. Dictated by: Truman Butts MD @ 03/07/2025 09:22:54 (Electronically Signed)
== END 2025-03-06 09:17 | disposition home or self-care (01) ==
LOC: MAMMO 09:17
PROVIDERS: PCP Internal Medicine; Visit Provider Internal Medicine
DX: Z12.31 Encounter for screening mammogram for malignant neoplasm of breast (principal)
CPT/HCPCS: 77063; 77067